=== PATIENT | male | born 1950 | race Two or more races ===

== ENCOUNTER 2016-11-20 14:26 | Inpatient (IN) | payer OTHER ==
[~2016-11-20] VITALS: Ht 165.1 cm; Wt 68.9 kg
--- NOTE | 2016-11-20 14:55 | Emergency Room Report ---
History of Present Illness General Chief Complaint: General Complaint Source: Patient, Medical Record, EMS Present Illness HPI 66 YO M with allegedly recently diagnosed pancreatic cancer sent from outpatient oncology facility for "more tests, possibly ERCP" as per EMS. Patient endorses 2-6/10 pain, some nausea. Denies vomiting, diarrhea, chest pain , SOB. States recent biopsy "didnt get enough info" and also had "2 stents in biliary tract" recently. States he was told he has obstruction at biliary tree at level of pancreas. Denies smoking, ETOH. Has ?BPH on finasteride. History of UTI recently? Allergies: Coded Allergies: No Known Allergies (Unverified , 11/20/16) Patient History Past Medical History: see triage record Past Surgical History: other - Stent placement in biliary tree Pertinent Family History: none Social History: Denies: alcohol use, drug use, smoking Immunizations: UTD Reviewed Nursing Documentation: PMH: Agreed, PSxH: Agreed Nursing Documentation-PMH Past Medical History: No History, Except For Hx Cancer: Yes - Pancreatic, obstructive Jaundice Review of Systems All Other Systems: negative except mentioned in HPI Physical Exam Vital Signs Date Time Temp Pulse Resp B/P Pulse Ox O2 Delivery O2 Flow Rate FiO2 11/20/16 14:22 98.4 68 16 121/67 94 Room Air Sp02 EP Interpretation: reviewed, normal General Appearance: normal inspection, well appearing, no apparent distress, alert, GCS 15, non-toxic Head: normocephalic, atraumatic Eyes: bilateral eye EOMI, bilateral eye PERRL ENT: normal ENT inspection, hearing grossly normal, normal voice Neck: normal inspection, full range of motion, supple, no bony tend Respiratory: normal inspection, lungs clear, normal breath sounds, no respiratory distress, no retraction, no wheezing Cardiovascular #1: regular rate, rhythm, no edema Gastrointestinal: normal inspection, normal bowel sounds, soft, no guarding, no hernia, distended, hepatomegaly, other - no rebound, guarding Genitourinary: no CVA tenderness Musculoskeletal: normal inspection, back normal, normal range of motion, Axel' s Sign negative Neurologic: normal inspection, alert, oriented x3, responsive, community product specialist III-XII nml as tested, motor strength/tone normal, speech normal Psychiatric: normal inspection, judgement/insight normal, mood/affect normal Skin: normal inspection, no rash, jaundice Medical Decision Making Medicare Attestation I Amaya Cornelius MD hereby attest that the medical record entry for date of service, 10/14/16 accurately reflects signatures/notations that I made in my capacity as MD when I treated/diagnosed the above listed Medicare beneficiary. I attest that this information is true, accurate and complete to the best of my knowledge. I understand that any falsification, omission, or concealment of material fact may subject me to administrative, civil, or criminal liability. This patient warrants hospital admission for extreme of age and has a condition that cannot be treated as outpatient. Diagnostic Impression: Primary Impression: Abdominal pain Qualified Codes: R10.84 - Generalized abdominal pain Additional Impressions: Pancreatic cancer Qualified Codes: C25.9 - Malignant neoplasm of pancreas, unspecified Jaundice Leukocytosis Qualified Codes: D72.829 - Elevated white blood cell count, unspecified ER Course 66 YO M with recent pancreatic cancer diagnosis, jaundice, abd pain, possible biliary tract obstruction, jaundice. VSS. Afebrile. PLAN Cardiac, O2 monitor, IV access, labs, LFTs, analgesia, Pre-op labs, Admit, GI consult Rhythm Strip Diag. Results EP Interpretation: yes Rate: 67 Rhythm: NSR, no PVC's, no ectopy Chest X-Ray Diagnostic Results EP Interpretation: Yes Findings: no consolidation, no effusion, no pneumothorax, no acute cardiopulmonary disease Number of Views: 1 Reevaluation Time: 16:28 Last Vital Signs Date Time Temp Pulse Resp B/P Pulse Ox O2 Delivery O2 Flow Rate FiO2 11/20/16 14:22 98.4 68 16 121/67 94 Room Air Status: improved Reevaluation Impression Labs: 18k lueks. H&H stable. CMP delayed. A: Empiric Zosyn given for potential biliary source of infection vs iatrogenic given recent biopsy/stent placement. CXR neg for PNA. Spoke to Dr Esparza who requested GI Cx with Dr York for ENDO US tomorrow, I confirmed with Dr York for this. Endorsed to Dr Dietrich as admitting hospitalist at 415pm for med surg bed Patient resting comfortably after anti-emetic and analgesia No other acute issues in ED Disposition: ADMITTED INPATIENT Condition: Serious AMAYA CORNELIUS M.D. Nov 20, 2016 14:55
[2016-11-20] MEDS ORDERED: HYDROmorphone 1 MG, DiphenhydrAMINE 25 MG in NS 50 ML IV ONE (15:00)
[2016-11-20] MEDS ORDERED: ATORVASTATIN CA20 MG ORAL (15:17)
[2016-11-20] MEDS ORDERED: TAMSULOSIN HCL0.4 MG ORAL (15:17)
[2016-11-20] MEDS ORDERED: PROSCAR5 MG ORAL (15:17)
[2016-11-20] MEDS ORDERED: HYDROmorphone 1mg/ml Carpuject ONE (15:34)
[2016-11-20] MEDS ORDERED: NS 55 ML IV ONE (15:34)
[2016-11-20] MEDS ORDERED: DiphenhydrAMINE 50mg/ml Inj ONE (15:34)
[2016-11-20 15:59] LABS: APPEARANCE,URINE CLEAR; KETONES,URINE NEGATIVE (NEGATIVE); LEUKOCYTE ESTERASE ,URINE NEGATIVE (NEGATIVE); NITRITE,URINE NEGATIVE (NEGATIVE); PH,URINE 7 (4.5-8.0); PROTEIN,URINE NEGATIVE (NEGATIVE); UROBILINOGEN,URINE 1 MG/DL (0.0-1.0)
[2016-11-20 16:05] VITALS: BP 121/63
[2016-11-20 16:11] VITALS: BP 112/57
[2016-11-20 16:14] LABS: MEAN CORPUSCULAR HEMOGLOBIN 31.2 PG (27.0-31.0); MEAN CORPUSCULAR HGB CONC 31.3 G/DL (32.0-36.0); MEAN CORPUSCULAR VOLUME 100 FL (80-99); MEAN PLATELET VOLUME 6.6 FL (6.5-10.1); PLATELET COUNT 247 K/UL (150-450); RED BLOOD COUNT 3.02 M/UL (4.70-6.10); RED CELL DISTRIBUTION WIDTH 15.3 % (11.6-14.8); WHITE BLOOD COUNT 18.5 K/UL (4.8-10.8)
[2016-11-20 16:22] LABS: PROTHROMBIN TIME 10.4 SEC (9.30-11.50)
[2016-11-20 16:26] LABS: CALCIUM 8.6 mg/dL (8.6-10.2); CREATININE 1.3 mg/dL (0.7-1.2); GLOMERULAR FILTRATION RATE 55.2 mL/min (>60); POTASSIUM 4.4 mEQ/L (3.4-4.9)
[2016-11-20 16:42] LABS: BILIRUBIN,DIRECT 2.1 mg/dL (0.1-0.3)
[2016-11-20] MEDS ORDERED: Zosyn 3.375gm inj ONE (16:42)
[2016-11-20] MEDS ORDERED: Nitroglycerin Subl 0.4mg tab (Bottle Of 25) SL PRN (16:45)
[2016-11-20] MEDS ORDERED: Mylanta II UD 30ml ORAL PRN (16:45)
[2016-11-20] MEDS ORDERED: Miralax 17gm pkt ORAL PRN (16:45)
[2016-11-20] MEDS ORDERED: Morphine Sulfate 2mg/ml Inj IVP PRN (16:45)
--- NOTE | 2016-11-20 16:46 | History and Physical ---
History of Present Illness General Date patient seen: Nov 20, 2016 Reason for Hospitalization: General Complaint Present Illness HPI 66 yo gentleman presents to emergency room with severe abdominal pain complaint. Patient also reports that he was recently diagnosed with pancreatic cancer and was recently sent from outpatient oncology facility for "more tests", possibly ERCP" as per EMS. Patient endorses 2-6/10 pain, some nausea. Denies vomiting, diarrhea, chest pain, SOB. Patient also states recent biopsy "didnt get enough info" and also had "2 stents in biliary tract" recently. Patient states that he was told he has obstruction at biliary tree at level of pancrease by the specialist taking care of him. Allergies: Coded Allergies: No Known Allergies (Unverified , 11/20/16) Medication History Scheduled Atorvastatin Calcium* (Atorvastatin Calcium*), 20 MG ORAL BEDTIME, (Reported) Finasteride* (Proscar*), 5 MG ORAL DAILY, (Reported) Tamsulosin Hcl (Tamsulosin Hcl*), 0.4 MG ORAL BEDTIME, (Reported) Patient History Healthcare decision maker Resuscitation status Advanced Directive on File Review of Systems Constitutional: Reports: fever, malaise, weakness Gastrointestinal: Reports: abdominal pain, nausea Physical Exam General Appearance: no apparent distress Lines, tubes and drains: peripheral HEENT: normocephalic, atraumatic, PERRL Neck: non-tender Respiratory/Chest: chest wall non-tender, crackles/rales, rhonchi - bilaterally Breasts: no masses Cardiovascular/Chest: normal peripheral pulses, normal rate, regular rhythm Abdomen: absent bowel sounds, distended, guarding, rebound, tender Genitourinary/Rectal: normal genital exam, normal rectal exam Extremities: normal range of motion, non-tender Skin Exam: normal pigmentation, warm/dry 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, no motor/sensory deficits Last 24 Hour Vital Signs Date Time Temp Pulse Resp B/P Pulse Ox O2 Delivery O2 Flow Rate FiO2 11/20/16 16:11 73 18 112/57 100 Room Air 11/20/16 16:05 69 16 121/63 100 Room Air 11/20/16 14:22 98.4 68 16 121/67 94 Room Air Laboratory Tests Test 11/20/16 15:20 White Blood Count 18.5 K/UL (4.8-10.8) H Red Blood Count 3.02 M/UL (4.70-6.10) L Hemoglobin 9.4 G/DL (14.2-18.0) L Hematocrit 30.1 % (42.0-52.0) L Mean Corpuscular Volume 100 FL (80-99) H Mean Corpuscular Hemoglobin 31.2 PG (27.0-31.0) H Mean Corpuscular Hemoglobin Concent 31.3 G/DL (32.0-36.0) L Red Cell Distribution Width 15.3 % (11.6-14.8) H Platelet Count 247 K/UL (150-450) Mean Platelet Volume 6.6 FL (6.5-10.1) Neutrophils (%) (Auto) % (45.0-75.0) Lymphocytes (%) (Auto) % (20.0-45.0) Monocytes (%) (Auto) % (1.0-10.0) Eosinophils (%) (Auto) % (0.0-3.0) Basophils (%) (Auto) % (0.0-2.0) Neutrophils % (Manual) Pending Lymphocytes % (Manual) Pending Platelet Estimate Pending Platelet Morphology Pending Prothrombin Time 10.4 SEC (9.30-11.50) Prothromb Time International Ratio 1.0 (0.9-1.1) Activated Partial Thromboplast Time 29 SEC (23-33) Urine Color Yellow Urine Appearance Clear Urine pH 7 (4.5-8.0) Urine Specific [place] 1.010 (1.005-1.035) Urine Protein Negative (NEGATIVE) Urine Glucose (UA) Negative (NEGATIVE) Urine Ketones Negative (NEGATIVE) Urine Occult Blood Negative (NEGATIVE) Urine Nitrite Negative (NEGATIVE) Urine Bilirubin Negative (NEGATIVE) Urine Urobilinogen 1 MG/DL (0.0-1.0) H Urine Leukocyte Esterase Negative (NEGATIVE) Sodium Level 140 mEQ/L (135-145) Potassium Level 4.4 mEQ/L (3.4-4.9) Chloride Level 99 mEQ/L (98-107) Carbon Dioxide Level 29 mEQ/L (20-30) Anion Gap 12 (5-15) Blood Urea Nitrogen 26 mg/dL (7-23) H Creatinine 1.3 mg/dL (0.7-1.2) H Estimat Glomerular Filtration Rate 55.2 mL/min (>60) Glucose Level 102 mg/dL (74-106) Calcium Level 8.6 mg/dL (8.6-10.2) Total Bilirubin 4.2 mg/dL (0.0-1.2) H Direct Bilirubin 2.1 mg/dL (0.1-0.3) H Aspartate Amino Transf (AST/SGOT) 76 U/L (5-40) H Alanine Aminotransferase (ALT/SGPT) 66 U/L (3-41) H Alkaline Phosphatase 345 U/L (40-129) H Total Protein 6.0 g/dL (6.6-8.7) L Albumin 3.0 g/dL (3.5-5.2) L Globulin 3.0 g/dL Albumin/Globulin Ratio 1.0 (1.0-2.7) Lipase 119 U/L (< 60) H Height (Feet): 5 Height (Inches): 8.00 Weight (Pounds): 150 Medications Current Medications Medications (Trade) Dose Ordered Sig/Courtney Route PRN Reason Start Time Stop Time Status Last Admin Dose Admin Acetaminophen (Tylenol) 650 mg Q4H PRN ORAL fever 11/20/16 16:45 12/20/16 16:44 UNV Al Hydroxide/Mg Hydroxide (Mylanta II) 30 ml Q6H PRN ORAL dyspepsia 11/20/16 16:45 12/20/16 16:44 UNV Atorvastatin Calcium (Lipitor) 20 mg BEDTIME ORAL 11/20/16 21:00 12/20/16 20:59 UNV Dextrose STAT PRN IV Hypoglycemia 11/20/16 16:45 12/20/16 16:44 UNV Dextrose/Sodium Chloride (D5 0.45% NS) 1,000 ml @ 75 mls/hr [id number] IV 11/20/16 17:40 12/20/16 17:39 UNV Diphenhydramine HCl (Benadryl) 25 mg Q6H PRN ORAL Itching/Pruritis 11/20/16 16:45 12/20/16 16:44 UNV Finasteride (Proscar) 5 mg DAILY ORAL 11/21/16 09:00 12/21/16 08:59 UNV Heparin Sodium (Porcine) (Heparin 5000 units/ml) 5,000 units EVERY 12 HOURS SUBQ 11/20/16 21:00 12/20/16 20:59 UNV Morphine Sulfate (Morphine Sulfate) 2 mg EVERY 4 HOURS PRN IVP severe Pain (Pain Scale 7-10) 11/20/16 16:45 11/27/16 16:44 UNV Nitroglycerin (Ntg) 0.4 mg Q5M X 3 DOSES PRN SL Prn Chest Pain 11/20/16 16:45 12/20/16 16:44 UNV Ondansetron HCl (Zofran) 4 mg Q6H PRN IVP Nausea & Vomiting 11/20/16 16:45 12/20/16 16:44 UNV Piperacillin Sod/ Tazobactam Sod/ Sodium Chloride (Zosyn/Sodium Chloride 100ml bag) 100 ml @ 200 mls/hr EVERY 6 HOURS IVPB 11/20/16 18:00 11/27/16 17:59 UNV Piperacillin Sod/ Tazobactam Sod/ Sodium Chloride (Zosyn/Sodium Chloride 100ml bag) 100 ml @ 200 mls/hr ONCE ONCE IVPB 11/20/16 16:30 11/20/16 16:59 11/20/16 16:45 Polyethylene Glycol (Miralax) 17 gm HSPRN PRN ORAL Constipation 11/20/16 16:45 12/20/16 16:44 UNV Tamsulosin HCl 0.4 mg 0.4 mg BEDTIME ORAL 11/20/16 21:00 12/20/16 20:59 UNV Temazepam (Restoril) 15 mg HSPRN PRN ORAL Insomnia 11/20/16 16:45 11/27/16 16:44 UNV Assessment/Plan Status: stable, progressing Assessment/Plan Assessment/Plan Problems: (1) Sepsis (2) Jaundice (3) Hypoalbuminemia (4) Pancreatic cancer (5) Abdominal pain (6) Biliary obstruction (7) Dyspnea (8) Anemia Assessment/Plan Urology evaluation cxr showing LLL atelectasis/ infiltrate continue antibiotics check cultures sputum c/s respiratory treatment MILES KNUTSON Nov 20, 2016 16:46
[2016-11-20 18:29] LABS: BAND NEUTROPHILS % (MANUAL) 5 % (0-8); BASOPHILS % (MANUAL) 1 % (0-2); EOSINOPHILS % (MANUAL) 6 % (0-3); LYMPHOCYTES % (MANUAL) 7 % (20-45); NEUTROPHILS % (MANUAL) 76 % (45-75); TOTAL CELLS COUNTED 100
[2016-11-20 18:30] LABS: ANISOCYTOSIS 1+; HYPOCHROMASIA 1+; POLYCHROMASIA 1+
[2016-11-20 18:31] LABS: PLATELET ESTIMATE ADEQUATE; PLATELET MORPHOLOGY NORMAL
[2016-11-20 20:00] VITALS: BP 124/67
[2016-11-20] MEDS: Tamsulosin 0.4mg cap ORAL SCH (22:04)
[2016-11-20] MEDS: D5 1/2NS 1,000 ML IV SCH (22:05)
[2016-11-20] MEDS: Heparin 5000 units/ml inj SUBQ SCH (22:07)
[2016-11-21] VITALS: BP 120/79
[2016-11-21 04:00] VITALS: BP 101/54
[2016-11-21] MEDS: D5 1/2NS 1,000 ML IV SCH ×3 (07:00→21:12)
[2016-11-21 08:25] LABS: MEAN CORPUSCULAR HEMOGLOBIN 32.2 PG (27.0-31.0); MEAN CORPUSCULAR HGB CONC 32.9 G/DL (32.0-36.0); MEAN CORPUSCULAR VOLUME 98 FL (80-99); MEAN PLATELET VOLUME 6.8 FL (6.5-10.1); PLATELET COUNT 248 K/UL (150-450); RED BLOOD COUNT 2.83 M/UL (4.70-6.10); WHITE BLOOD COUNT 19.4 K/UL (4.8-10.8)
[2016-11-21 08:47] LABS: BILIRUBIN,DIRECT 1.9 mg/dL (0.1-0.3); TOTAL PROTEIN 5.3 g/dL (6.6-8.7)
[2016-11-21 08:52] LABS: ALBUMIN/GLOBULIN RATIO 1.2 (1.0-2.7); CALCIUM 7.9 mg/dL (8.6-10.2); CREATININE 1.4 mg/dL (0.7-1.2); GLOMERULAR FILTRATION RATE 50.7 mL/min (>60); POTASSIUM 3.9 mEQ/L (3.4-4.9); TOTAL PROTEIN 4.8 g/dL (6.6-8.7)
[2016-11-21] MEDS: Heparin 5000 units/ml inj SUBQ SCH ×2 (10:39→21:00)
[2016-11-21 10:43] LABS: ANISOCYTOSIS 1+; BAND NEUTROPHILS % (MANUAL) 0 % (0-8); BASOPHILS % (MANUAL) 0 % (0-2); EOSINOPHILS % (MANUAL) 1 % (0-3); LYMPHOCYTES % (MANUAL) 2 % (20-45); NEUTROPHILS % (MANUAL) 97 % (45-75); PLATELET ESTIMATE ADEQUATE; PLATELET MORPHOLOGY NORMAL; TOTAL CELLS COUNTED 100
[2016-11-21 10:44] LABS: MACROCYTES 1+
[2016-11-21 10:45] LABS: HYPOCHROMASIA 1+
[2016-11-21 12:00] VITALS: BP 93/60
[2016-11-21 16:00] VITALS: BP 94/59
--- NOTE | 2016-11-21 17:00 | GI Initial Consult Note ---
History of Present Illness General Date patient seen: Nov 21, 2016 Time patient seen: 10:00 Reason for Hospitalization: General Complaint Referring physician: ROBIN BURLESON Reason for Consultation: ABDOMINAL PAIN Present Illness HPI 66 YO M with allegedly recently diagnosed pancreatic cancer sent from outpatient oncology facility for "more tests, possibly ERCP" as per EMS. Patient endorses 2-6/10 pain, some nausea. Denies vomiting, diarrhea, chest pain , SOB. States recent biopsy "didnt get enough info" and also had "2 stents in biliary tract" recently. States he was told he has obstruction at biliary tree at level of pancreas. Denies smoking, ETOH. Has ?BPH on finasteride. History of UTI recently? GI NOTE: Initial HPI as noted above. GI consulted to evaluate biliary obstruction. Pt seen on floor, awake A&Ox4 with only c/o of hunger at this time. The patient was currently NPO, scheduled for multiple imaging studies on the biliary tree. Pt has hx of pancreatic CA with CA19-9 of 120.9 on admission. Also presents with leukocytosis, anemia, abnormal LFTs and hypoalbuminemia. Home Meds Reported Medications Tamsulosin Hcl (TAMSULOSIN HCL*) 0.4 Mg Cap.er.24h, 0.4 MG ORAL BEDTIME, CAP 11/20/16 Finasteride* (PROSCAR*) 5 Mg Tablet, 5 MG ORAL DAILY, #30 TAB 0 Refills 11/20/16 Atorvastatin Calcium* (ATORVASTATIN CALCIUM*) 20 Mg Tablet, 20 MG ORAL BEDTIME, TAB 11/20/16 Med list reviewed/reconciled: Yes Allergies: Coded Allergies: No Known Allergies (Unverified , 11/20/16) Patient History History Provided By: Patient PMH Narrative Past Medical History: see triage record Past Surgical History: other - Stent placement in biliary tree Pertinent Family History: none Social History: Denies: alcohol use, drug use, smoking Immunizations: UTD Reviewed Nursing Documentation: PMH: Agreed, PSxH: Agreed Nursing Documentation-PM Past Medical History: No History, Except For Hx Cancer: Yes - Pancreatic, obstructive Jaundice Review of Systems All Other Systems: negative except mentioned in HPI Physical Exam Vital Signs Date Time Temp Pulse Resp B/P Pulse Ox O2 Delivery O2 Flow Rate FiO2 11/20/16 14:22 98.4 68 16 121/67 94 Room Air 11/21/16 00:00 2.0 Sp02 EP Interpretation: reviewed Labs Laboratory Tests Test 11/21/16 07:10 White Blood Count 19.4 K/UL (4.8-10.8) H Red Blood Count 2.83 M/UL (4.70-6.10) L Hemoglobin 9.1 G/DL (14.2-18.0) L Hematocrit 27.6 % (42.0-52.0) L Mean Corpuscular Volume 98 FL (80-99) Mean Corpuscular Hemoglobin 32.2 PG (27.0-31.0) H Mean Corpuscular Hemoglobin Concent 32.9 G/DL (32.0-36.0) Red Cell Distribution Width 15.0 % (11.6-14.8) H Platelet Count 248 K/UL (150-450) Mean Platelet Volume 6.8 FL (6.5-10.1) Neutrophils (%) (Auto) % (45.0-75.0) Lymphocytes (%) (Auto) % (20.0-45.0) Monocytes (%) (Auto) % (1.0-10.0) Eosinophils (%) (Auto) % (0.0-3.0) Basophils (%) (Auto) % (0.0-2.0) Differential Total Cells Counted 100 Neutrophils % (Manual) 97 % (45-75) H Lymphocytes % (Manual) 2 % (20-45) L Monocytes % (Manual) 0 % (1-10) L Eosinophils % (Manual) 1 % (0-3) Basophils % (Manual) 0 % (0-2) Band Neutrophils 0 % (0-8) Platelet Estimate Adequate Platelet Morphology Normal Hypochromasia 1+ Anisocytosis 1+ Macrocytosis 1+ Activated Partial Thromboplast Time 29 SEC (23-33) Sodium Level 144 mEQ/L (135-145) Potassium Level 3.9 mEQ/L (3.4-4.9) Chloride Level 102 mEQ/L (98-107) Carbon Dioxide Level 27 mEQ/L (20-30) Anion Gap 15 (5-15) Blood Urea Nitrogen 24 mg/dL (7-23) H Creatinine 1.4 mg/dL (0.7-1.2) H Estimat Glomerular Filtration Rate 50.7 mL/min (>60) Glucose Level 92 mg/dL (74-106) Calcium Level 7.9 mg/dL (8.6-10.2) L Total Bilirubin 3.8 mg/dL (0.0-1.2) H Direct Bilirubin 1.9 mg/dL (0.1-0.3) H Aspartate Amino Transf (AST/SGOT) 73 U/L (5-40) H Alanine Aminotransferase (ALT/SGPT) 58 U/L (3-41) H Alkaline Phosphatase 282 U/L (40-129) H Total Protein 5.3 g/dL (6.6-8.7) L Albumin 2.6 g/dL (3.5-5.2) L Globulin 2.1 g/dL Albumin/Globulin Ratio 1.2 (1.0-2.7) Amylase Level 80 U/L (10-110) Lipase 106 U/L (< 60) H CA 19-9 Antigen 120.9 U/mL (< 37) H General Appearance: no apparent distress, alert, thin Head: normocephalic EENT: normal ENT inspection Neck: supple Respiratory: normal breath sounds, no respiratory distress Cardiovascular: normal rate Gastrointestinal: normal inspection, non tender, soft Rectal: deferred Genitourinary: no CVA tenderness Musculoskeletal: back normal Neurologic: normal inspection, alert, oriented x3, responsive Psychiatric: normal inspection, judgement/insight normal, memory normal Skin: normal inspection, normal color, no rash, warm/dry Lymphatic: normal inspection, no adenopathy Current Medications Current Medications Medications (Trade) Dose Ordered Sig/Courtney Route PRN Reason Start Time Stop Time Status Last Admin Dose Admin Acetaminophen (Tylenol) 650 mg Q4H PRN ORAL fever 11/20/16 16:45 12/20/16 16:44 Al Hydroxide/Mg Hydroxide (Mylanta II) 30 ml Q6H PRN ORAL dyspepsia 11/20/16 16:45 12/20/16 16:44 Atorvastatin Calcium (Lipitor) 20 mg BEDTIME ORAL 11/20/16 21:00 12/20/16 20:59 11/20/16 22:04 Dextrose STAT PRN IV Hypoglycemia 11/20/16 16:45 12/20/16 16:44 Dextrose/Sodium Chloride (D5 0.45% NS) 1,000 ml @ 75 mls/hr [id number] IV 11/20/16 17:40 2/10/17 17:39 11/21/16 12:22 Diphenhydramine HCl (Benadryl) 25 mg Q6H PRN ORAL Itching/Pruritis 11/20/16 16:45 12/20/16 16:44 Finasteride (Proscar) 5 mg DAILY ORAL 11/21/16 09:00 12/21/16 08:59 11/21/16 10:33 Heparin Sodium (Porcine) (Heparin 5000 units/ml) 5,000 units EVERY 12 HOURS SUBQ 11/20/16 21:00 12/20/16 20:59 11/21/16 10:39 Morphine Sulfate (Morphine Sulfate) 2 mg EVERY 4 HOURS PRN IVP severe Pain (Pain Scale 7-10) 11/20/16 16:45 11/27/16 16:44 11/21/16 03:34 Nitroglycerin (Ntg) 0.4 mg Q5M X 3 DOSES PRN SL Prn Chest Pain 11/20/16 16:45 12/20/16 16:44 Ondansetron HCl (Zofran) 4 mg Q6H PRN IVP Nausea & Vomiting 11/20/16 16:45 12/20/16 16:44 Piperacillin Sod/ Tazobactam Sod/ Sodium Chloride (Zosyn/Sodium Chloride 100ml bag) 100 ml @ 25 mls/hr Q8HR IVPB 11/20/16 22:00 11/27/16 21:59 11/21/16 13:52 Polyethylene Glycol (Miralax) 17 gm HSPRN PRN ORAL Constipation 11/20/16 16:45 12/20/16 16:44 Tamsulosin HCl 0.4 mg 0.4 mg BEDTIME ORAL 11/20/16 21:00 12/20/16 20:59 11/20/16 22:04 Temazepam (Restoril) 15 mg HSPRN PRN ORAL Insomnia 11/20/16 16:45 11/27/16 16:44 GI: Plan Problems: (1) Anemia (2) Biliary obstruction (3) Hypoalbuminemia (4) Malnutrition (5) Abdominal pain (6) Pancreatic cancer (7) Jaundice (8) Leukocytosis Plan pt scheduled for EUS/FNA tomorrow. - CLD now, NPO @ [place]. monitor H&H, transfuse prn fu abdominal imaging studies ppi fu labs Discussed with Dr. York. Thank you for referring this patient, we will follow. Oxana Michaels N.P. Nov 21, 2016 17:00
--- NOTE | 2016-11-21 17:27 | Diagnostic Imaging Report ---
Indications: Pelvic pain, history of pancreatic neoplasm Technique: Sagittal and axial T2-weighted fast spin-echo, coronal and axial T2-weighted fat-saturated fast spin-echo, axial T1-weighted fast spin-echo, Lara saturated lava and fat saturated lava sequences of the pelvis performed without IV gadolinium administration. Findings: Comparison: None Motion artifact degrades all images. Moderate ascites fills the pelvic peritoneal cavity. 2.5 cm multilobulated soft tissue mass is based against the posterior peritoneal surface of the pelvic cul-de-sac. There is suggestion of additional soft tissue nodules adjacent to the anterior pelvic peritoneal surface and surface of the sigmoid colon. Multiple diverticula are noted in the proximal aspect of the sigmoid colon. Garcia catheter is present in the urinary bladder. Prostate gland is prominent and heterogeneous. No enlarged retroperitoneal, mesenteric, pelvic, or inguinal lymph nodes detected. Small left inguinal hernia contains only fat. Disc space narrowing with marginal osteophyte formation in lower lumbar spine. IMPRESSION: Moderate ascites Suggestion of multiple peritoneal masses raising the suspicion of peritoneal carcinomatosis. CT scan of the abdomen and pelvis with full oral and IV contrast preparation recommended for more detailed evaluation. Garcia catheter Enlarged heterogeneous prostate Degenerative spondylosis Colonic diverticulosis Small fat-containing left inguinal hernia
[2016-11-21 20:00] VITALS: BP 100/62
--- NOTE | 2016-11-21 20:17 | Cardiology Report ---
APPROVED REPORT EKG Measurement Heart [id number] Normal sinus rhythm Possible Left atrial enlargement Borderline ECG
[2016-11-21] MEDS: Tamsulosin 0.4mg cap ORAL SCH (21:12)
[2016-11-22] VITALS (13 sets, daily range): BP systolic 81–114; BP diastolic 45–68
[2016-11-22] MEDS: Pantoprazole Inj IVP SCH (09:00)
[2016-11-22] MEDS: Heparin 5000 units/ml inj SUBQ SCH ×2 (09:00→21:11)
--- NOTE | 2016-11-22 09:21 | Pre-Procedure Note/Attestation ---
Pre-Procedure Note/Attestation Complete Prior to Procedure Planned Procedure: not applicable Procedure Narrative: eus/fna Indications for Procedure Pre-Operative Diagnosis: pancreatic mass Attestation I attest that I discussed the nature of the procedure; its benefits; risks and complications; and alternatives (and the risks and benefits of such alternatives ), prior to the procedure, with the patient (or the patient's legal appeals representative). I attest that, if there was a reasonable possibility of needing a blood transfusion, the patient (or the patient's legal appeals representative) was given the [facility] standardized written summary, pursuant to the Rivera Stefania Blood Safety Act ([place] Health and Safety Code # 1645, as amended). I attest that I re-evaluated the patient just prior to the surgery and that there has been no change in the patient's H&P, except as documented below: ALIREZA HERRERA Nov 22, 2016 09:21
[2016-11-22 09:22] LABS: BASOPHILS % (AUTO) 2.2 % (0.0-2.0); EOSINOPHILS % (AUTO) 8.5 % (0.0-3.0); LYMPHOCYTES % (AUTO) 5.7 % (20.0-45.0); MEAN CORPUSCULAR HEMOGLOBIN 31.9 PG (27.0-31.0); MEAN CORPUSCULAR HGB CONC 32.9 G/DL (32.0-36.0); MEAN CORPUSCULAR VOLUME 97 FL (80-99); MEAN PLATELET VOLUME 6.6 FL (6.5-10.1); MONOCYTES % (AUTO) 3.7 % (1.0-10.0); NEUTROPHILS % (AUTO) 79.9 % (45.0-75.0); PLATELET COUNT 246 K/UL (150-450); RED BLOOD COUNT 2.88 M/UL (4.70-6.10); RED CELL DISTRIBUTION WIDTH 14.9 % (11.6-14.8); WHITE BLOOD COUNT 12.7 K/UL (4.8-10.8)
[2016-11-22] MEDS ORDERED: Propofol 10mg/ml 20ml IV ONE (09:30)
[2016-11-22] MEDS ORDERED: Heplock Flush 100 units/ml 3 ml syr ONE (09:36)
[2016-11-22] MEDS: D5 1/2NS 1,000 ML IV SCH ×3 (09:40→21:17)
[2016-11-22] MEDS ORDERED: NS 550ML IV ONE ×2 (09:45→10:45)
[2016-11-22 09:46] LABS: ALBUMIN/GLOBULIN RATIO 0.8 (1.0-2.7); CREATININE 1.3 mg/dL (0.7-1.2); GLOMERULAR FILTRATION RATE 55.2 mL/min (>60); POTASSIUM 3.2 mEQ/L (3.4-4.9); TOTAL PROTEIN 5.6 g/dL (6.6-8.7)
[2016-11-22 09:47] LABS: INR 1.1 (0.9-1.1); PROTHROMBIN TIME 10.9 SEC (9.30-11.50)
--- NOTE | 2016-11-22 10:02 | Anethesia Preoperative Eval ---
Anesthesia Pre-op PMH/ROS General Date of Evaluation: Nov 22, 2016 Time of Evaluation: 09:36 Anesthesiologist: nish ASA Score: ASA 3 Mallampati Score Class I : Soft palate, uvula, fauces, pillars visible Class II: Soft palate, uvula, fauces visible Class III: Soft palate, base of uvula visible Class IV: Only hard plate visible Mallampati Classification: Class II Surgeon: karen Diagnosis: pancreatic mass Surgical Procedure: EUS/FNA Anesthesia History: none Allergies: Coded Allergies: No Known Allergies (Unverified , 11/20/16) Past Medical History Cardiovascular: Reports: HTN Gastrointestinal/Genitourinary: Reports: other - acute renal failure, dialysis Anesthesia Pre-op Phys. Exam Physician Exam Last Vital Signs Date Time Temp Pulse Resp B/P Pulse Ox O2 Delivery O2 Flow Rate FiO2 11/22/16 04:00 97.7 67 18 114/68 99 Room Air 11/21/16 04:00 2.0 Airway Exam Mallampati Score: Class II Teeth: intact Anesthesia Pre-op A/P Labs Hematology Test 11/22/16 08:20 White Blood Count 12.7 K/UL (4.8-10.8) H Red Blood Count 2.88 M/UL (4.70-6.10) L Hemoglobin 9.2 G/DL (14.2-18.0) L Hematocrit 28.0 % (42.0-52.0) L Mean Corpuscular Volume 97 FL (80-99) Mean Corpuscular Hemoglobin 31.9 PG (27.0-31.0) H Mean Corpuscular Hemoglobin Concent 32.9 G/DL (32.0-36.0) Red Cell Distribution Width 14.9 % (11.6-14.8) H Platelet Count 246 K/UL (150-450) Mean Platelet Volume 6.6 FL (6.5-10.1) Neutrophils (%) (Auto) 79.9 % (45.0-75.0) H Lymphocytes (%) (Auto) 5.7 % (20.0-45.0) L Monocytes (%) (Auto) 3.7 % (1.0-10.0) Eosinophils (%) (Auto) 8.5 % (0.0-3.0) H Basophils (%) (Auto) 2.2 % (0.0-2.0) H Coagulation Test 11/22/16 08:20 Prothrombin Time 10.9 SEC (9.30-11.50) Prothromb Time International Ratio 1.1 (0.9-1.1) Activated Partial Thromboplast Time 30 SEC (23-33) Chemistry Test 11/22/16 08:20 Sodium Level 141 mEQ/L (135-145) Potassium Level 3.2 mEQ/L (3.4-4.9) L Chloride Level 100 mEQ/L (98-107) Carbon Dioxide Level 25 mEQ/L (20-30) Anion Gap 16 (5-15) H Blood Urea Nitrogen 22 mg/dL (7-23) Creatinine 1.3 mg/dL (0.7-1.2) H Estimat Glomerular Filtration Rate 55.2 mL/min (>60) Glucose Level 103 mg/dL (74-106) Calcium Level 8.0 mg/dL (8.6-10.2) L Total Bilirubin 3.8 mg/dL (0.0-1.2) H Direct Bilirubin Pending Aspartate Amino Transf (AST/SGOT) 79 U/L (5-40) H Alanine Aminotransferase (ALT/SGPT) 66 U/L (3-41) H Alkaline Phosphatase 269 U/L (40-129) H Total Protein 5.6 g/dL (6.6-8.7) L Albumin 2.6 g/dL (3.5-5.2) L Globulin 3.0 g/dL Albumin/Globulin Ratio 0.8 (1.0-2.7) L Risk Assessment & Plan Plan: propofol Status Change Before Surgery: Geovanni Rojas MD Nov 22, 2016 10:02
--- NOTE | 2016-11-22 10:03 | Immediate Post-Op Evaluation ---
Immediate Post-Op Evalulation Immediate Post-Op Evalulation Date of Evaluation: Nov 22, 2016 Time of Evaluation: 11:15 IV Fluids: 600 Blood Pressure Systolic: 89 Blood Pressure Diastolic: 57 Pulse Rate: 64 Respiratory Rate: 22 O2 Sat by Pulse Oximetry: 100 Temperature (Fahrenheit): 97 Pain Score (1-10): 0 Nausea: No Vomiting: No Complications none Patient Status: awake, patent, none Hydration Status: adequate Geovanni Null MD Nov 22, 2016 10:03
--- NOTE | 2016-11-22 10:04 | 48 Hour Post Anesthesia Eval ---
Post Anesthesia Evaluation Date of Evaluation: Nov 22, 2016 Time of Evaluation: 11:40 Blood Pressure Systolic: 105 0: 67 Pulse Rate: 59 Respiratory Rate: 21 Temperature (Fahrenheit): 98.5 O2 Sat by Pulse Oximetry: 100 Airway: patent Nausea: No Vomiting: No Pain Intensity: 0 Hydration Status: adequate Cardiopulmonary Status: stable Mental Status/LOC: patient returned to baseline Follow-up Care/Observations: n/a Post-Anesthesia Complications: tolerated well Follow-up care needed: N/A Geovanni Null MD Nov 22, 2016 10:04
[2016-11-22] MEDS ORDERED: NS 110ml ONE (12:59)
--- NOTE | 2016-11-22 16:20 | Wound Care Consultation ---
Wound Assessment Wound Assessment #1: Wound Present on Admission: Yes New Wound: No Status Change of Wound: No Wound Location Body Site: perineal area Wound Type: chemical burn Mila Test: Does not Mila Wound Drainage Amount: None Wound Drainage Odor: None/Absent Tissue Surrounding Wound: Erythemic Wound General Appearance: Reddened Wound Assessment #2: Wound Number: #2 Wound Present on Admission: Yes New Wound: No Status Change of Wound: No Wound Location Body Site Modif: left, dorsal Wound Location Body Site: foot Wound Type: blister - open blisters Mila Test: Does not Mila Wound Thickness: Partial Thickness Wound Drainage Description: Serosanguineous Wound Drainage Amount: Moderate Wound Drainage Odor: None/Absent Tissue Surrounding Wound: Erythemic Wound General Appearance: Reddened Wound Comment #1 Chemical burn to perineal area and sacral area #2 Left dorsal foot with scattered open blisters Recommendation -Keep clean and dry -Turn and reposition -Optimize nutrition -Cleanse area with saline, pat dry, apply skin barrier cream to Perineal and sacral area BID and PAM -Cleanse left dorsal foot open blister area with saline, pat dry, apply adaptic , cover with 4x4, secure with paper tape daily and PRN soiled or dislodged -Offload both heels -Elevate both legs -Assess and f/u accordingly for any changes HELENE DONALDSON RN Nov 22, 2016 16:20
--- NOTE | 2016-11-22 17:23 | Pulmonology Progress Note ---
Assessment/Plan Problems: (1) Sepsis (2) Jaundice (3) Hypoalbuminemia (4) Pancreatic cancer (5) Abdominal pain (6) Biliary obstruction (7) Dyspnea (8) Anemia Assessment/Plan continue antibiotics check cultures awaiting ERCP and biopsy Subjective ROS Limited/Unobtainable: No Interval Events: late entery for 11/21/16, pt awaiting biopsy, Constitutional: Reports: no symptoms HEENT: Repors: no symptoms Respiratory: Reports: no symptoms Allergies: Coded Allergies: No Known Allergies (Unverified , 11/20/16) Objective Last 24 Hour Vital Signs Date Time Temp Pulse Resp B/P Pulse Ox O2 Delivery O2 Flow Rate FiO2 11/22/16 16:00 97.4 65 15 105/64 100 Nasal Cannula 2.0 11/22/16 14:00 97.0 73 18 97/67 100 Nasal Cannula 3.0 11/22/16 13:00 97.5 72 19 91/61 100 Nasal Cannula 3.0 11/22/16 11:57 59 21 100 11/22/16 11:35 98.5 59 21 105/67 100 Nasal Cannula 3.0 11/22/16 11:30 58 21 100/65 100 Nasal Cannula 3.0 11/22/16 11:25 58 21 96/62 100 Nasal Cannula 3.0 11/22/16 11:20 61 26 89/59 100 Simple Mask 6.0 11/22/16 11:13 62 25 88/60 100 Simple Mask 6.0 11/22/16 11:13 64 22 100 11/22/16 11:08 97.3 64 21 81/45 100 Simple Mask 6.0 11/22/16 08:00 97.3 63 18 99/59 99 Room Air 11/22/16 04:00 97.7 67 18 114/68 99 Room Air 11/22/16 00:00 97.5 63 18 105/62 100 Room Air 11/21/16 20:00 98.1 72 14 100/62 100 Room Air Intake and Output 11/21/16 11/22/16 19:00 07:00 Intake Total 975.0 ml 612 ml Output Total 550 ml 400 ml Balance 425.0 ml 212 ml Intake Oral 500 ml IV Total 475.0 ml 612 ml Output Urine Total 550 ml 400 ml # Bowel Movements 1 General Appearance: WD/WN HEENT: normocephalic Respiratory/Chest: chest wall non-tender, lungs clear Cardiovascular: normal peripheral pulses Abdomen: normal bowel sounds, no organomegaly Skin: no lesions, ulcers Laboratory Tests 11/22/16 08:20: White Blood Count 12.7H, Red Blood Count 2.88L, Hemoglobin 9.2L, Hematocrit 28.0L, Mean Corpuscular Volume 97, Mean Corpuscular Hemoglobin 31.9H, Mean Corpuscular Hemoglobin Concent 32.9, Red Cell Distribution Width 14.9H, Platelet Count 246, Mean Platelet Volume 6.6, Neutrophils (%) (Auto) 79.9H, Lymphocytes (%) (Auto) 5.7L, Monocytes (%) (Auto) 3.7, Eosinophils (%) (Auto) 8.5H, Basophils (%) (Auto) 2.2H, Prothrombin Time 10.9, Prothromb Time International Ratio 1.1, Activated Partial Thromboplast Time 30, Sodium Level 141, Potassium Level 3.2L, Chloride Level 100, Carbon Dioxide Level 25, Anion Gap 16H, Blood Urea Nitrogen 22, Creatinine 1.3H, Estimat Glomerular Filtration Rate 55.2, Glucose Level 103, Calcium Level 8.0L, Total Bilirubin 3.8H, Direct Bilirubin 2.0H, Aspartate Amino Transf (AST/SGOT) 79H, Alanine Aminotransferase (ALT/SGPT) 66H, Alkaline Phosphatase 269H, Total Protein 5.6L, Albumin 2.6L, Globulin 3.0, Albumin/Globulin Ratio 0.8L Current Medications Medications (Trade) Dose Ordered Sig/Courtney Route PRN Reason Start Time Stop Time Status Last Admin Dose Admin Acetaminophen (Tylenol) 650 mg Q4H PRN ORAL fever 11/20/16 16:45 12/20/16 16:44 Al Hydroxide/Mg Hydroxide (Mylanta II) 30 ml Q6H PRN ORAL dyspepsia 11/20/16 16:45 12/20/16 16:44 Atorvastatin Calcium (Lipitor) 20 mg BEDTIME ORAL 11/20/16 21:00 12/20/16 20:59 11/21/16 21:12 Dextrose STAT PRN IV Hypoglycemia 11/20/16 16:45 12/20/16 16:44 Dextrose/Sodium Chloride (D5 0.45% NS) 1,000 ml @ 75 mls/hr [id number] IV 11/20/16 17:40 12/20/16 17:39 11/22/16 13:14 Diphenhydramine HCl (Benadryl) 25 mg Q6H PRN ORAL Itching/Pruritis 11/20/16 16:45 12/20/16 16:44 Finasteride (Proscar) 5 mg DAILY ORAL 11/21/16 09:00 12/21/16 08:59 11/21/16 10:33 Heparin Sodium (Porcine) (Heparin 5000 units/ml) 5,000 units EVERY 12 HOURS SUBQ 11/20/16 21:00 12/20/16 20:59 11/21/16 10:39 Morphine Sulfate (Morphine Sulfate) 2 mg EVERY 4 HOURS PRN IVP severe Pain (Pain Scale 7-10) 11/20/16 16:45 11/27/16 16:44 11/21/16 03:34 Nitroglycerin (Ntg) 0.4 mg Q5M X 3 DOSES PRN SL Prn Chest Pain 11/20/16 16:45 12/20/16 16:44 Ondansetron HCl (Zofran) 4 mg Q6H PRN IVP Nausea & Vomiting 11/20/16 16:45 12/20/16 16:44 Pantoprazole (Protonix) 40 mg DAILY IVP 11/22/16 09:00 12/22/16 08:59 Piperacillin Sod/ Tazobactam Sod/ Sodium Chloride (Zosyn/Sodium Chloride 100ml bag) 100 ml @ 25 mls/hr Q8HR IVPB 11/20/16 22:00 11/27/16 21:59 11/22/16 14:54 Polyethylene Glycol (Miralax) 17 gm HSPRN PRN ORAL Constipation 11/20/16 16:45 12/20/16 16:44 Tamsulosin HCl 0.4 mg 0.4 mg BEDTIME ORAL 11/20/16 21:00 12/20/16 20:59 11/21/16 21:12 Temazepam (Restoril) 15 mg HSPRN PRN ORAL Insomnia 11/20/16 16:45 11/27/16 16:44 MILES KNUTSON Nov 22, 2016 17:23
--- NOTE | 2016-11-22 17:25 | Pulmonology Progress Note ---
Assessment/Plan Problems: (1) Sepsis (2) Jaundice (3) Hypoalbuminemia (4) Pancreatic cancer (5) Abdominal pain (6) Biliary obstruction (7) Dyspnea (8) Anemia Assessment/Plan social service pt/ot dc planning cxr continue antibiotics check cultures awaiting biopsy results Subjective ROS Limited/Unobtainable: No Interval Events: feeling week, doesnt want to be discharged Allergies: Coded Allergies: No Known Allergies (Unverified , 11/20/16) Objective Last 24 Hour Vital Signs Date Time Temp Pulse Resp B/P Pulse Ox O2 Delivery O2 Flow Rate FiO2 11/22/16 16:00 97.4 65 15 105/64 100 Nasal Cannula 2.0 11/22/16 14:00 97.0 73 18 97/67 100 Nasal Cannula 3.0 11/22/16 13:00 97.5 72 19 91/61 100 Nasal Cannula 3.0 11/22/16 11:57 59 21 100 11/22/16 11:35 98.5 59 21 105/67 100 Nasal Cannula 3.0 11/22/16 11:30 58 21 100/65 100 Nasal Cannula 3.0 11/22/16 11:25 58 21 96/62 100 Nasal Cannula 3.0 11/22/16 11:20 61 26 89/59 100 Simple Mask 6.0 11/22/16 11:13 62 25 88/60 100 Simple Mask 6.0 11/22/16 11:13 64 22 100 11/22/16 11:08 97.3 64 21 81/45 100 Simple Mask 6.0 11/22/16 08:00 97.3 63 18 99/59 99 Room Air 11/22/16 04:00 97.7 67 18 114/68 99 Room Air 11/22/16 00:00 97.5 63 18 105/62 100 Room Air 11/21/16 20:00 98.1 72 14 100/62 100 Room Air Intake and Output 11/21/16 11/22/16 19:00 07:00 Intake Total 975.0 ml 612 ml Output Total 550 ml 400 ml Balance 425.0 ml 212 ml Intake Oral 500 ml IV Total 475.0 ml 612 ml Output Urine Total 550 ml 400 ml # Bowel Movements 1 General Appearance: WD/WN HEENT: normocephalic, atraumatic Respiratory/Chest: chest wall non-tender, lungs clear Cardiovascular: normal peripheral pulses, normal rate Abdomen: normal bowel sounds, soft, non tender Extremities: no cyanosis Neurologic/Psychiatric: pigskin trimmer II-XII grossly normal, no motor/sensory deficits Lymphatic: no neck adenopathy Musculoskeletal: normal muscle bulk Laboratory Tests 11/22/16 08:20: White Blood Count 12.7H, Red Blood Count 2.88L, Hemoglobin 9.2L, Hematocrit 28.0L, Mean Corpuscular Volume 97, Mean Corpuscular Hemoglobin 31.9H, Mean Corpuscular Hemoglobin Concent 32.9, Red Cell Distribution Width 14.9H, Platelet Count 246, Mean Platelet Volume 6.6, Neutrophils (%) (Auto) 79.9H, Lymphocytes (%) (Auto) 5.7L, Monocytes (%) (Auto) 3.7, Eosinophils (%) (Auto) 8.5H, Basophils (%) (Auto) 2.2H, Prothrombin Time 10.9, Prothromb Time International Ratio 1.1, Activated Partial Thromboplast Time 30, Sodium Level 141, Potassium Level 3.2L, Chloride Level 100, Carbon Dioxide Level 25, Anion Gap 16H, Blood Urea Nitrogen 22, Creatinine 1.3H, Estimat Glomerular Filtration Rate 55.2, Glucose Level 103, Calcium Level 8.0L, Total Bilirubin 3.8H, Direct Bilirubin 2.0H, Aspartate Amino Transf (AST/SGOT) 79H, Alanine Aminotransferase (ALT/SGPT) 66H, Alkaline Phosphatase 269H, Total Protein 5.6L, Albumin 2.6L, Globulin 3.0, Albumin/Globulin Ratio 0.8L Current Medications Medications (Trade) Dose Ordered Sig/Courtney Route PRN Reason Start Time Stop Time Status Last Admin Dose Admin Acetaminophen (Tylenol) 650 mg Q4H PRN ORAL fever 11/20/16 16:45 12/20/16 16:44 Al Hydroxide/Mg Hydroxide (Mylanta II) 30 ml Q6H PRN ORAL dyspepsia 11/20/16 16:45 12/20/16 16:44 Atorvastatin Calcium (Lipitor) 20 mg BEDTIME ORAL 11/20/16 21:00 12/20/16 20:59 11/21/16 21:12 Dextrose STAT PRN IV Hypoglycemia 11/20/16 16:45 12/20/16 16:44 Dextrose/Sodium Chloride (D5 0.45% NS) 1,000 ml @ 75 mls/hr [id number] IV 11/20/16 17:40 12/20/16 17:39 11/22/16 13:14 Diphenhydramine HCl (Benadryl) 25 mg Q6H PRN ORAL Itching/Pruritis 11/20/16 16:45 12/20/16 16:44 Finasteride (Proscar) 5 mg DAILY ORAL 11/21/16 09:00 12/21/16 08:59 11/21/16 10:33 Heparin Sodium (Porcine) (Heparin 5000 units/ml) 5,000 units EVERY 12 HOURS SUBQ 11/20/16 21:00 12/20/16 20:59 11/21/16 10:39 Morphine Sulfate (Morphine Sulfate) 2 mg EVERY 4 HOURS PRN IVP severe Pain (Pain Scale 7-10) 11/20/16 16:45 11/27/16 16:44 11/21/16 03:34 Nitroglycerin (Ntg) 0.4 mg Q5M X 3 DOSES PRN SL Prn Chest Pain 11/20/16 16:45 12/20/16 16:44 Ondansetron HCl (Zofran) 4 mg Q6H PRN IVP Nausea & Vomiting 11/20/16 16:45 12/20/16 16:44 Pantoprazole (Protonix) 40 mg DAILY IVP 11/22/16 09:00 12/22/16 08:59 Piperacillin Sod/ Tazobactam Sod/ Sodium Chloride (Zosyn/Sodium Chloride 100ml bag) 100 ml @ 25 mls/hr Q8HR IVPB 11/20/16 22:00 11/27/16 21:59 11/22/16 14:54 Polyethylene Glycol (Miralax) 17 gm HSPRN PRN ORAL Constipation 11/20/16 16:45 12/20/16 16:44 Tamsulosin HCl 0.4 mg 0.4 mg BEDTIME ORAL 11/20/16 21:00 12/20/16 20:59 11/21/16 21:12 Temazepam (Restoril) 15 mg HSPRN PRN ORAL Insomnia 11/20/16 16:45 11/27/16 16:44 MILES KNUTSON Nov 22, 2016 17:25
[2016-11-22] MEDS ORDERED: D5 1/2NS 1000ml IV ONE (18:26)
--- NOTE | 2016-11-22 19:58 | Procedure Note ---
SURGEON: Jovany York M.D. PROCEDURE: Endoscopic ultrasound with fine-needle aspiration. ANESTHESIA: Per Dr. Null. INSTRUMENT: Olympus adult flexible upper endoscope and flexible EUS scope. INDICATION: Pancreatic mass. REASON FOR PROCEDURE: The procedure, risks, benefits, and possible consequences, including hemorrhage, aspiration, perforation and infection, and alternative treatments, were explained to the patient/legal guardian by Dr. Jovany York and the patient/legal guardian understood and accepted these risks. DESCRIPTION OF PROCEDURE: After informed consent was obtained and the patient was adequately sedated, EUS scope was advanced from the mouth into the esophagus and into the GE junction. Starting scanning at GE junction, we saw about 1.8 cm to celiac axis lymph node. The patient had evidence of ascites and possible carcinomatosis. Pancreatic body and tail looks normal. No pancreatic duct dilatation was seen in the body or tail of the pancreas. Then, the scope was advanced to the duodenal bulb and second portion of duodenum. This procedure was very challenging given patient has a metallic stent and a plastic stent in place in the distal common bile duct. Shadowing from making difficult to see the obvious mass, but this seems to be a 4 cm mass in the uncinate process/head of the pancreas. As I mentioned, this was a very challenging given the uncinate process location of this tumor and given there is a 2 stents going through it making it very difficult to obviously seated pancreatic mass treated well with a shadowing of the metallic stent. We did a 3 passes of 22-gauge core needle biopsy of this area, which seems to be a mass and the patella in the presence of the pathologist and tissue was sent for evaluation. The patient also has no peripancreatic lymphadenopathy. SUMMARY OF FINDINGS: 1. Very difficult and challenging procedure given the uncinate process location of this tumor on given there was a metallic stent in its shadowing. 2. 1.8 cm celiac axis lymphadenopathy. 3. Ascites with possible carcinomatosis. 4. 4 cm mass in the uncinate process status post FNA x3 with 22-gauge core needle. 5. Peripancreatic lymphadenopathy. RECOMMENDATIONS: Follow up biopsies and treat accordingly. I want to thank Dr. Shireen Card, for this kind referral. Jovany Mauricio York DR: Sammi JOB#: [id number] CC: Shireen Card M.D.; Fax#: [phone]
[2016-11-22] MEDS: Tamsulosin 0.4mg cap ORAL SCH (21:07)
[2016-11-23] VITALS: BP 105/64
[2016-11-23 04:00] VITALS: BP 101/81
[2016-11-23 07:05] LABS: INR 1.1 (0.9-1.1); PROTHROMBIN TIME 10.9 SEC (9.30-11.50)
[2016-11-23 07:15] LABS: BASOPHILS % (AUTO) 2.8 % (0.0-2.0); EOSINOPHILS % (AUTO) 4.5 % (0.0-3.0); MEAN CORPUSCULAR HGB CONC 33.6 G/DL (32.0-36.0); MEAN CORPUSCULAR VOLUME 95 FL (80-99); MEAN PLATELET VOLUME 6.6 FL (6.5-10.1); MONOCYTES % (AUTO) 2.3 % (1.0-10.0); NEUTROPHILS % (AUTO) 82.3 % (45.0-75.0); PLATELET COUNT 241 K/UL (150-450); RED CELL DISTRIBUTION WIDTH 14.5 % (11.6-14.8); WHITE BLOOD COUNT 13.8 K/UL (4.8-10.8)
[2016-11-23 07:29] LABS: ALANINE AMINOTRANSFERASE 54 U/L (3-41); ALBUMIN/GLOBULIN RATIO 0.8 (1.0-2.7); ANION GAP 15 (5-15); ASPARTATE AMINO TRANSFERASE 59 U/L (5-40); CALCIUM 7.8 mg/dL (8.6-10.2); CARBON DIOXIDE 25 mEQ/L (20-30); CHLORIDE 103 mEQ/L (98-107); CREATININE 1.2 mg/dL (0.7-1.2); GLOMERULAR FILTRATION RATE > 60 mL/min (>60); HEMOLYSIS 0; POTASSIUM 3.3 mEQ/L (3.4-4.9); SODIUM 143 mEQ/L (135-145)
[2016-11-23 07:56] LABS: MAGNESIUM 1.7 mg/dL (1.7-2.5); PHOSPHORUS 2.9 mg/dL (2.5-4.8)
[2016-11-23 08:00] VITALS: BP 89/62
[2016-11-23 08:04] LABS: BILIRUBIN,DIRECT 1.6 mg/dL (0.1-0.3)
[2016-11-23] MEDS: Pantoprazole Inj IVP SCH (08:22)
[2016-11-23] MEDS: Heparin 5000 units/ml inj SUBQ SCH (08:29)
--- NOTE | 2016-11-23 08:29 | Diagnostic Imaging Report ---
Indication: Chest Pain Comparison: None A single view chest radiograph was obtained. Findings: Vague left basilar density noted. Small effusion and/or infiltrate could be present. Heart size is within normal limits. Pulmonary vascularity is normal. Bones are unremarkable. Impression: Left pleural effusion and/or infiltrate
--- NOTE | 2016-11-23 08:29 | Diagnostic Imaging Report ---
Indications: Chest pain, pancreatic mass Technique: Continuous helical CT imaging of the thorax was performed with automatic exposure control, following bolus intravenous administration of nonionic iodine contrast, on a Siemens sensation [address] scanner. Axial images reconstructed at 3 mm slice thickness and 1.5 mm interval. Coronal and sagittal images were reconstructed at 3 mm slice thickness. Coronal and sagittal two-dimensional maximum intensity projection and three-dimensional volume-rendered images were reconstructed on a stand alone workstation. CTDI volume(s): 13x2, 20 mGy Total DLP: 673 mGy-cm Findings: Comparison: None The main pulmonary artery, right and left pulmonary arteries, and pulmonary artery branches to the level of aorta branching in the left lower lobe, elsewhere the third order branching are patent and well-opacified. No intraluminal filling defects are demonstrated. More peripheral branches in left lower lobe are less well opacified and partially obscured by surrounding parenchymal consolidation and volume loss. Subsegmental parenchymal consolidation and volume loss are present in the dependent portion of the right lower lobe. Small bibasal pleural effusions are present, left greater than right. Heart is normal in size. No pericardial abnormality is demonstrated. Scattered arterial mural calcifications are present. Thoracic aorta and great vessels are patent and well-opacified, normal in caliber and configuration. No evidence of aneurysm, dissection, or leak. No enlarged mediastinal or hilar lymph nodes detected. Chest wall soft tissues nonfocal. Evaluation of imaged upper abdominal anatomy limited due to earlier arterial phase of imaging. Pancreas appears diffusely enlarged and heterogeneous with surrounding stranding and fluid. Moderate ascites. Bile stent is present in the common bile duct, incompletely imaged, gas and fluid-filled. Gas is present throughout mildly dilated intrahepatic bile ducts. Multiple small stones in gallbladder lumen. Gallbladder wall thickening not excludable. Small-caliber soft tissue nodularity adjacent to celiac axis. Mild stranding/nodularity in the omentum. Focal calcification and scarring upper pole cortex left kidney. Bridging osteophytes throughout thoracic spine. No focal skeletal lesion identified. Impression: No evidence of pulmonary embolism, with limitation as described. One or more small peripheral pulmonary emboli in the left lower lobe could be missed. Bilateral pulmonary lower lobe atelectasis. Superimposed pneumonia on left not excludable Bilateral pleural effusions, left greater than right, nonspecific, could be secondary to presence of ascites Mild arteriosclerosis. No evidence of acute thoracic aortic pathology Enlarged heterogeneous pancreas with surrounding changes described suggesting acute pancreatitis. Neoplasm not excludable. Biliary stents in place, patent pneumobilia Moderate ascites Mesenteric stranding/nodularity may be secondary to ascites. Carcinomatosis not excludable. Suggestion of mesenteric root adenopathy versus small varices Cholelithiasis Degenerative spondylosis
--- NOTE | 2016-11-23 08:30 | Diagnostic Imaging Report ---
Indications: Abdominal pain, history of pancreatic malignancy Technique: Coronal and axial T2-weighted single shot fast spin-echo breath-hold, coronal and coronal oblique thick slab MRCP, axial T2-weighted fat-saturated fast spin-echo, 2-D FIESTA, dual echo spoiled gradient, and LAVA sequences of the abdomen performed prior to IV gadolinium administration. Serial axial LAVA sequences performed following IV gadolinium administration. Findings: Comparison: None Motion artifact degrades all images. The pancreas is diffusely enlarged and surrounded by significant edema/fluid. It demonstrates homogeneous parenchymal signal characteristics and homogeneous enhancement without evidence of discrete focal mass. Stent traverses the common bile duct into the second portion duodenal lumen. Bile ducts are mildly dilated with intraluminal gas. Subcentimeter circumscribed fluid signal foci in hepatic segments 4A, IVb,, 6, and 8. No focal solid liver lesion identified. Small signal void filling defects in gallbladder lumen. Mild gallbladder wall thickening. Moderate diffuse ascites. No intraperitoneal loculated fluid collections demonstrated. Spleen, adrenal glands, kidneys, remainder of imaged upper abdominal anatomy unremarkable. Small bibasal pleural effusions. IMPRESSION: Diffuse pancreatic enlargement and surrounding edema compatible with acute pancreatitis. No imaging evidence of neoplasm. Patent metal biliary stent with pneumobilia Cholelithiasis. Gallbladder wall thickening likely secondary to presence of ascites. Moderate ascites, nonspecific Nonspecific subcentimeter liver lesions most likely cysts Small bilateral pleural effusions most likely secondary to presence of ascites
--- NOTE | 2016-11-23 09:14 | Consultation ---
Consult Note Consult Note ID CONSULT: Dict# [id number] Assessment/Plan ASSESSMENT: 66 y/o male with: // Probable cholangitis / obstructive jaundice - SP biliary stent OSH with pneumobilia // Leukocytosis - improved, afebrile ( pancreatitis, CA contributing ) // Probable metastatic pancreatic CA / peritoneal carcinomatosis - SP EUS, FNA x3 - path pending // Acute pancreatitis // Elevated LFTs // Urinary retention, hematuria SP holcomb // L>R pleural effusions // VRE colonized // NKDA // Full Code PLAN: - continue zosyn d# . Ok to complete course with PO cipro + flagyl at discharge - check UA, UCx - f/u path - monitor CBC, temperatures - monitor CMP Thanks! Will follow MARÍA SARGENT Nov 23, 2016 09:14
--- NOTE | 2016-11-23 10:20 | Diagnostic Imaging Report ---
Indications: DYSPNEA Technique: Portable AP chest Findings: Comparison: Chest radiograph 11/20/16; CTA chest 11/21/16 Again, poor inspiration limits evaluation. Linearly oriented consolidative opacity persists in the left lung base with indistinctness of the hemidiaphragmatic silhouette and costophrenic angle. Visualized portions of right lung and pleura clear. Heart size and pulmonary vasculature remain within normal limits. IMPRESSION: Persistent left basal opacity corresponding to atelectasis and pleural effusion on CT scan, not significantly changed No new abnormality identified.
--- NOTE | 2016-11-23 11:10 | Pulmonology Progress Note ---
Assessment/Plan Problems: (1) Sepsis (2) Jaundice (3) Hypoalbuminemia (4) Pancreatic cancer (5) Abdominal pain (6) Biliary obstruction (7) Dyspnea (8) Anemia Assessment/Plan Urology evaluation continue abc cxr showing LLL atelectasis/ infiltrate continue antibiotics check cultures awaiting biopsy results sputum c/s respiratory treatment Subjective ROS Limited/Unobtainable: No Interval Events: had hematuria Constitutional: Reports: no symptoms Allergies: Coded Allergies: No Known Allergies (Unverified , 11/20/16) Objective Last 24 Hour Vital Signs Date Time Temp Pulse Resp B/P Pulse Ox O2 Delivery O2 Flow Rate FiO2 11/23/16 08:32 97.0 11/23/16 08:00 97.0 90 18 89/62 100 Room Air 11/23/16 04:00 98.0 69 19 101/81 100 Room Air 11/23/16 00:00 98.2 70 19 105/64 100 Room Air 11/22/16 20:02 98.1 80 15 105/61 100 Room Air 11/22/16 16:00 97.4 65 15 105/64 100 Nasal Cannula 2.0 11/22/16 14:00 97.0 73 18 97/67 100 Nasal Cannula 3.0 11/22/16 13:00 97.5 72 19 91/61 100 Nasal Cannula 3.0 11/22/16 11:57 59 21 100 11/22/16 11:35 98.5 59 21 105/67 100 Nasal Cannula 3.0 11/22/16 11:30 58 21 100/65 100 Nasal Cannula 3.0 11/22/16 11:25 58 21 96/62 100 Nasal Cannula 3.0 11/22/16 11:20 61 26 89/59 100 Simple Mask 6.0 11/22/16 11:13 62 25 88/60 100 Simple Mask 6.0 11/22/16 11:13 64 22 100 Intake and Output 11/22/16 11/23/16 19:00 07:00 Intake Total 490 ml Output Total 750 ml 450 ml Balance -260 ml -450 ml Intake Oral 240 ml IV Total 250 ml Output Urine Total 750 ml 450 ml Estimated Blood Loss 0 ml # Bowel Movements 1 HEENT: normocephalic, atraumatic Respiratory/Chest: chest wall non-tender, lungs clear Cardiovascular: normal peripheral pulses, normal rate Abdomen: normal bowel sounds, soft, non tender Genitourinary: normal external genitalia Skin: no rash, no lesions Neurologic/Psychiatric: prop sawyer II-XII grossly normal, no motor/sensory deficits Lymphatic: no neck adenopathy Microbiology Date/Time Source Procedure Growth Status 11/21/16 00:30 Nasal Nares MRSA Culture - Final NO METHICILLIN RESISTANT STAPH AUREUS... Complete 11/21/16 00:30 Rectum VRE Culture - Final Enterococcus Faecium - Vre Complete Laboratory Tests 11/22/16 17:18: Carcinoembryonic Antigen 3.8H 11/23/16 05:10: White Blood Count 13.8H, Red Blood Count 2.60L, Hemoglobin 8.3L, Hematocrit 24.8L, Mean Corpuscular Volume 95, Mean Corpuscular Hemoglobin 32.0H, Mean Corpuscular Hemoglobin Concent 33.6, Red Cell Distribution Width 14.5, Platelet Count 241, Mean Platelet Volume 6.6, Neutrophils (%) (Auto) 82.3H, Lymphocytes ( %) (Auto) 8.0L, Monocytes (%) (Auto) 2.3, Eosinophils (%) (Auto) 4.5H, Basophils (%) (Auto) 2.8H, Prothrombin Time 10.9, Prothromb Time International Ratio 1.1, Activated Partial Thromboplast Time 33, Sodium Level 143, Potassium Level 3.3L, Chloride Level 103, Carbon Dioxide Level 25, Anion Gap 15, Blood Urea Nitrogen 22, Creatinine 1.2, Estimat Glomerular Filtration Rate > 60, Glucose Level 141H, Calcium Level 7.8L, Phosphorus Level 2.9, Magnesium Level 1.7, Total Bilirubin 3.1H, Direct Bilirubin 1.6H, Aspartate Amino Transf (AST/ SGOT) 59H, Alanine Aminotransferase (ALT/SGPT) 54H, Alkaline Phosphatase 259H, Total Protein 5.0L, Albumin 2.3L, Globulin 2.7, Albumin/Globulin Ratio 0.8L 11/23/16 09:55: Urine Color [Pending], Urine Appearance [Pending], Urine pH [Pending], Urine Specific [place] [Pending], Urine Protein [Pending], Urine Glucose (UA) [Pending ], Urine Ketones [Pending], Urine Occult Blood [Pending], Urine Nitrite [Pending ], Urine Bilirubin [Pending], Urine Urobilinogen [Pending], Urine Leukocyte Esterase [Pending], Urine RBC [Pending], Urine WBC [Pending], Urine Squamous Epithelial Cells [Pending], Urine Bacteria [Pending] Current Medications Medications (Trade) Dose Ordered Sig/Courtney Route PRN Reason Start Time Stop Time Status Last Admin Dose Admin Acetaminophen (Tylenol) 650 mg Q4H PRN ORAL fever 11/20/16 16:45 12/20/16 16:44 11/23/16 07:33 Al Hydroxide/Mg Hydroxide (Mylanta II) 30 ml Q6H PRN ORAL dyspepsia 11/20/16 16:45 12/20/16 16:44 Atorvastatin Calcium (Lipitor) 20 mg BEDTIME ORAL 11/20/16 21:00 12/20/16 20:59 11/22/16 21:07 Dextrose STAT PRN IV Hypoglycemia 11/20/16 16:45 12/20/16 16:44 Dextrose/Sodium Chloride (D5 0.45% NS) 1,000 ml @ 75 mls/hr [id number] IV 11/20/16 17:40 12/20/16 17:39 11/22/16 21:17 Diphenhydramine HCl (Benadryl) 25 mg Q6H PRN ORAL Itching/Pruritis 11/20/16 16:45 12/20/16 16:44 Finasteride (Proscar) 5 mg DAILY ORAL 11/21/16 09:00 12/21/16 08:59 11/23/16 08:22 Heparin Sodium (Porcine) (Heparin 5000 units/ml) 5,000 units EVERY 12 HOURS SUBQ 11/20/16 21:00 12/20/16 20:59 11/23/16 08:29 Morphine Sulfate (Morphine Sulfate) 2 mg EVERY 4 HOURS PRN IVP severe Pain (Pain Scale 7-10) 11/20/16 16:45 11/27/16 16:44 11/21/16 03:34 Nitroglycerin (Ntg) 0.4 mg Q5M X 3 DOSES PRN SL Prn Chest Pain 11/20/16 16:45 12/20/16 16:44 Ondansetron HCl (Zofran) 4 mg Q6H PRN IVP Nausea & Vomiting 11/20/16 16:45 12/20/16 16:44 Pantoprazole (Protonix) 40 mg DAILY IVP 11/22/16 09:00 12/22/16 08:59 11/23/16 08:22 Piperacillin Sod/ Tazobactam Sod/ Sodium Chloride (Zosyn/Sodium Chloride 100ml bag) 100 ml @ 25 mls/hr Q8HR IVPB 11/20/16 22:00 11/27/16 21:59 11/23/16 06:13 Polyethylene Glycol (Miralax) 17 gm HSPRN PRN ORAL Constipation 11/20/16 16:45 12/20/16 16:44 Tamsulosin HCl 0.4 mg 0.4 mg BEDTIME ORAL 11/20/16 21:00 12/20/16 20:59 11/22/16 21:07 Temazepam (Restoril) 15 mg HSPRN PRN ORAL Insomnia 11/20/16 16:45 11/27/16 16:44 MILES KNUTSON Nov 23, 2016 11:10
[2016-11-23 11:31] LABS: APPEARANCE,URINE CLOUDY; KETONES,URINE NEGATIVE (NEGATIVE); LEUKOCYTE ESTERASE ,URINE 1+ (NEGATIVE); NITRITE,URINE NEGATIVE (NEGATIVE); PH,URINE 5 (4.5-8.0); PROTEIN,URINE 3+ (NEGATIVE); UROBILINOGEN,URINE 1 MG/DL (0.0-1.0)
--- NOTE | 2016-11-23 11:47 | Consultation ---
History of Present Illness General Date patient seen: Nov 23, 2016 Time patient seen: 11:44 Chief Complaint: General Complaint Referring physician: ROBIN BURLESON Reason for Consultation: ABDOMINAL PAIN Present Illness HPI 66 yo male with recent onset of hematuria after significant pain yesterday. No known history, never had issue before. Reports having a catheter since transferring from [place]. Has likely carcinomatosis. Underwent ERCP recently. Currently very sensitive around catheter and having lower abdominal discomfort. Allergies: Coded Allergies: No Known Allergies (Unverified , 11/20/16) Medication History Scheduled Atorvastatin Calcium* (Atorvastatin Calcium*), 20 MG ORAL BEDTIME, (Reported) Finasteride* (Proscar*), 5 MG ORAL DAILY, (Reported) Tamsulosin Hcl (Tamsulosin Hcl*), 0.4 MG ORAL BEDTIME, (Reported) Patient History History Provided By: Patient Healthcare decision maker Lanie Lee Resuscitation status Full Code Advanced Directive on File No Past Medical/Surgical History Past Medical/Surgical History: (1) Jaundice (2) Anemia (3) Pancreatic cancer (4) Abdominal pain (5) Biliary obstruction Review of Systems Constitutional: Reports: weakness Eye: Denies: acuity changes, blurred vision, discharge, double vision, eye pain , no symptoms, nose congestion, nose pain, other, see HPI, tearing ENT: Denies: ear discharge, ear pain, hearing loss, mouth pain, nasal discharge , no symptoms, nose congestion, nose pain, other, see HPI, throat pain, throat swelling Respiratory: Denies: MORALES, cough, no symptoms, orthopnea, other, see HPI, shortness of breath, sputum, stridor, wheezing Cardiovascular: Denies: PND, chest pain, edema, no symptoms, other, palpitations, see HPI, syncope Gastrointestinal: Reports: abdominal pain Genitourinary: Reports: hematuria, Denies: discharge, dysuria, frequency, incontinence, no symptoms, other, pain, retention, see HPI, urgency, vag bleed/ dc Musculoskeletal: Denies: back pain, gout, joint pain, joint swelling, muscle pain, muscle stiffness, no symptoms, other, see HPI Skin: Denies: change in color, change in hair/nails, dryness, lesions, no symptoms, other, rash, see HPI Psychiatric: Denies: HI, SI, anxiety, depressed feelings, emotional problems, hallucinations, no symptoms, other, prior hx, see HPI Neurological: Denies: dizziness, focal weakness, headache, no symptoms, numbness, other, paresthesia, see HPI, seizure, syncope, tingling, tremors Endocrine: Denies: excessive sweating, flushing, increased thirst, increased urine, intolerance to temperature, no symptoms, other, see HPI, unexplained weight loss Hematologic/Lymphatic: Denies: anemia, blood clots, diathesis, easy bleeding, easy bruising, no symptoms, other, see HPI, swollen glands Physical Exam General Appearance: mild distress Neck: non-tender Cardiovascular/Chest: normal rate, regular rhythm Abdomen: soft Genitourinary/Rectal: other Last 24 Hour Vital Signs Date Time Temp Pulse Resp B/P Pulse Ox O2 Delivery O2 Flow Rate FiO2 11/23/16 08:32 97.0 11/23/16 08:00 97.0 90 18 89/62 100 Room Air 11/23/16 04:00 98.0 69 19 101/81 100 Room Air 11/23/16 00:00 98.2 70 19 105/64 100 Room Air 11/22/16 20:02 98.1 80 15 105/61 100 Room Air 11/22/16 16:00 97.4 65 15 105/64 100 Nasal Cannula 2.0 11/22/16 14:00 97.0 73 18 97/67 100 Nasal Cannula 3.0 11/22/16 13:00 97.5 72 19 91/61 100 Nasal Cannula 3.0 11/22/16 11:57 59 21 100 Intake and Output 11/22/16 11/23/16 19:00 07:00 Intake Total 490 ml Output Total 750 ml 450 ml Balance -260 ml -450 ml Intake Oral 240 ml IV Total 250 ml Output Urine Total 750 ml 450 ml Estimated Blood Loss 0 ml # Bowel Movements 1 Laboratory Tests Test 11/22/16 17:18 11/23/16 05:10 11/23/16 09:55 Carcinoembryonic Antigen 3.8 ng/mL H White Blood Count 13.8 K/UL (4.8-10.8) H Red Blood Count 2.60 M/UL (4.70-6.10) L Hemoglobin 8.3 G/DL (14.2-18.0) L Hematocrit 24.8 % (42.0-52.0) L Mean Corpuscular Volume 95 FL (80-99) Mean Corpuscular Hemoglobin 32.0 PG (27.0-31.0) H Mean Corpuscular Hemoglobin Concent 33.6 G/DL (32.0-36.0) Red Cell Distribution Width 14.5 % (11.6-14.8) Platelet Count 241 K/UL (150-450) Mean Platelet Volume 6.6 FL (6.5-10.1) Neutrophils (%) (Auto) 82.3 % (45.0-75.0) H Lymphocytes (%) (Auto) 8.0 % (20.0-45.0) L Monocytes (%) (Auto) 2.3 % (1.0-10.0) Eosinophils (%) (Auto) 4.5 % (0.0-3.0) H Basophils (%) (Auto) 2.8 % (0.0-2.0) H Prothrombin Time 10.9 SEC (9.30-11.50) Prothromb Time International Ratio 1.1 (0.9-1.1) Activated Partial Thromboplast Time 33 SEC (23-33) Sodium Level 143 mEQ/L (135-145) Potassium Level 3.3 mEQ/L (3.4-4.9) L Chloride Level 103 mEQ/L (98-107) Carbon Dioxide Level 25 mEQ/L (20-30) Anion Gap 15 (5-15) Blood Urea Nitrogen 22 mg/dL (7-23) Creatinine 1.2 mg/dL (0.7-1.2) Estimat Glomerular Filtration Rate > 60 mL/min (>60) Glucose Level 141 mg/dL (74-106) H Calcium Level 7.8 mg/dL (8.6-10.2) L Phosphorus Level 2.9 mg/dL (2.5-4.8) Magnesium Level 1.7 mg/dL (1.7-2.5) Total Bilirubin 3.1 mg/dL (0.0-1.2) H Direct Bilirubin 1.6 mg/dL (0.1-0.3) H Aspartate Amino Transf (AST/SGOT) 59 U/L (5-40) H Alanine Aminotransferase (ALT/SGPT) 54 U/L (3-41) H Alkaline Phosphatase 259 U/L (40-129) H Total Protein 5.0 g/dL (6.6-8.7) L Albumin 2.3 g/dL (3.5-5.2) L Globulin 2.7 g/dL Albumin/Globulin Ratio 0.8 (1.0-2.7) L Urine Color Brown Urine Appearance Cloudy Urine pH 5 (4.5-8.0) Urine Specific [place] 1.020 (1.005-1.035) Urine Protein 3+ (NEGATIVE) H Urine Glucose (UA) Negative (NEGATIVE) Urine Ketones Negative (NEGATIVE) Urine Occult Blood 5+ (NEGATIVE) H Urine Nitrite Negative (NEGATIVE) Urine Bilirubin 1+ (NEGATIVE) H Urine Ictotest Pending Urine Urobilinogen 1 MG/DL (0.0-1.0) H Urine Leukocyte Esterase 1+ (NEGATIVE) H Urine RBC Pending Urine WBC Pending Urine Squamous Epithelial Cells Pending Urine Bacteria Pending Height (Feet): 5 Height (Inches): 5.00 Weight (Pounds): 152 Medications Current Medications Medications (Trade) Dose Ordered Sig/Courtney Route PRN Reason Start Time Stop Time Status Last Admin Dose Admin Acetaminophen (Tylenol) 650 mg Q4H PRN ORAL fever 11/20/16 16:45 12/20/16 16:44 11/23/16 07:33 Al Hydroxide/Mg Hydroxide (Mylanta II) 30 ml Q6H PRN ORAL dyspepsia 11/20/16 16:45 12/20/16 16:44 Atorvastatin Calcium (Lipitor) 20 mg BEDTIME ORAL 11/20/16 21:00 12/20/16 20:59 11/22/16 21:07 Dextrose STAT PRN IV Hypoglycemia 11/20/16 16:45 12/20/16 16:44 Dextrose/Sodium Chloride (D5 0.45% NS) 1,000 ml @ 75 mls/hr [id number] IV 11/20/16 17:40 12/20/16 17:39 11/22/16 21:17 Diphenhydramine HCl (Benadryl) 25 mg Q6H PRN ORAL Itching/Pruritis 11/20/16 16:45 12/20/16 16:44 Finasteride (Proscar) 5 mg DAILY ORAL 11/21/16 09:00 12/21/16 08:59 11/23/16 08:22 Morphine Sulfate (Morphine Sulfate) 2 mg EVERY 4 HOURS PRN IVP severe Pain (Pain Scale 7-10) 11/20/16 16:45 11/27/16 16:44 11/21/16 03:34 Nitroglycerin (Ntg) 0.4 mg Q5M X 3 DOSES PRN SL Prn Chest Pain 11/20/16 16:45 12/20/16 16:44 Ondansetron HCl (Zofran) 4 mg Q6H PRN IVP Nausea & Vomiting 11/20/16 16:45 12/20/16 16:44 Pantoprazole (Protonix) 40 mg DAILY IVP 11/22/16 09:00 12/22/16 08:59 11/23/16 08:22 Piperacillin Sod/ Tazobactam Sod/ Sodium Chloride (Zosyn/Sodium Chloride 100ml bag) 100 ml @ 25 mls/hr Q8HR IVPB 11/20/16 22:00 11/27/16 21:59 11/23/16 06:13 Polyethylene Glycol (Miralax) 17 gm HSPRN PRN ORAL Constipation 11/20/16 16:45 12/20/16 16:44 Promethazine HCl/ Codeine (Phenergan with Codeine) 5 ml Q4H PRN ORAL For Cough 11/23/16 12:00 12/23/16 11:59 Tamsulosin HCl 0.4 mg 0.4 mg BEDTIME ORAL 11/20/16 21:00 12/20/16 20:59 11/22/16 21:07 Temazepam (Restoril) 15 mg HSPRN PRN ORAL Insomnia 11/20/16 16:45 11/27/16 16:44 Objective Narrative MRI: normal kidney/bladder, large prostate Assessment/Plan Status: stable Assessment/Plan 66 yo male with likely catheter trauma associated hematuria. seems to be improving already. Catheter draining well. Likely accompanying bladder spasms as well. 1. continue holcomb 2. agree with urine culture and empiric abx 3. recommend ointment to penis 4. valium 2 mg IV prn spasm Omar Reid M.D. Nov 23, 2016 11:47
[2016-11-23 11:49] LABS: BACTERIA,URINE FEW /HPF; RBC,URINE TNTC /HPF (0 - 0); SQUAMOUS EPITHELIAL CELL,UR OCCASIONAL /LPF (NONE/OCC)
[2016-11-23 12:00] VITALS: BP 96/57
[2016-11-23] MEDS ORDERED: Promethazine/Codeine 5ml UD ORAL PRN (12:00)
[2016-11-23] MEDS: D5 1/2NS 1,000 ML IV SCH (12:04)
[2016-11-23 12:55] LABS: INR 1.1 (0.9-1.1); PROTHROMBIN TIME 10.7 SEC (9.30-11.50)
[2016-11-23 13:57] LABS: ERYTHROCYTE SEDIMENTATION RATE 115 MM/HR (0-20); PATH BLOOD SMEAR/OMC SENT TO PATHOLOGIST
[2016-11-23 14:13] LABS: ICTOTEST POSITIVE
[2016-11-23 14:24] LABS: RETICULOCYTE COUNT 1.1 % (0.0-2.0)
[2016-11-23] MEDS: Lidocaine HCl 2% Jelly 5ml Tube TOPIC PRN (16:07)
--- NOTE | 2016-11-23 16:34 | General Progress Note ---
Assessment/Plan Assessment/Plan Assessment (1) Anemia (2) Biliary obstruction (3) Hypoalbuminemia (4) Malnutrition (5) Abdominal pain (6) Pancreatic cancer (7) Jaundice (8) Leukocytosis Plan monitor H&H, transfuse prn f/u path ppi fu labs Subjective Allergies: Coded Allergies: No Known Allergies (Unverified , 11/20/16) Subjective Feels OK ate OK some hematuria Objective Last 24 Hour Vital Signs Date Time Temp Pulse Resp B/P Pulse Ox O2 Delivery O2 Flow Rate FiO2 11/23/16 12:00 97.0 67 19 96/57 100 Room Air 11/23/16 08:32 97.0 11/23/16 08:00 97.0 90 18 89/62 100 Room Air 11/23/16 04:00 98.0 69 19 101/81 100 Room Air 11/23/16 00:00 98.2 70 19 105/64 100 Room Air 11/22/16 20:02 98.1 80 15 105/61 100 Room Air Intake and Output 11/22/16 11/23/16 19:00 07:00 Intake Total 490 ml Output Total 750 ml 450 ml Balance -260 ml -450 ml Intake Oral 240 ml IV Total 250 ml Output Urine Total 750 ml 450 ml Estimated Blood Loss 0 ml # Bowel Movements 1 Laboratory Tests 11/22/16 17:18: Carcinoembryonic Antigen 3.8H 11/23/16 05:10: White Blood Count 13.8H, Red Blood Count 2.60L, Hemoglobin 8.3L, Hematocrit 24.8L, Mean Corpuscular Volume 95, Mean Corpuscular Hemoglobin 32.0H, Mean Corpuscular Hemoglobin Concent 33.6, Red Cell Distribution Width 14.5, Platelet Count 241, Mean Platelet Volume 6.6, Neutrophils (%) (Auto) 82.3H, Lymphocytes ( %) (Auto) 8.0L, Monocytes (%) (Auto) 2.3, Eosinophils (%) (Auto) 4.5H, Basophils (%) (Auto) 2.8H, Prothrombin Time 10.9, Prothromb Time International Ratio 1.1, Activated Partial Thromboplast Time 33, Sodium Level 143, Potassium Level 3.3L, Chloride Level 103, Carbon Dioxide Level 25, Anion Gap 15, Blood Urea Nitrogen 22, Creatinine 1.2, Estimat Glomerular Filtration Rate > 60, Glucose Level 141H, Calcium Level 7.8L, Phosphorus Level 2.9, Magnesium Level 1.7, Total Bilirubin 3.1H, Direct Bilirubin 1.6H, Aspartate Amino Transf (AST/ SGOT) 59H, Alanine Aminotransferase (ALT/SGPT) 54H, Alkaline Phosphatase 259H, Total Protein 5.0L, Albumin 2.3L, Globulin 2.7, Albumin/Globulin Ratio 0.8L 11/23/16 09:55: Urine Color Brown, Urine Appearance Cloudy, Urine pH 5, Urine Specific [place] 1.020, Urine Protein 3+H, Urine Glucose (UA) Negative, Urine Ketones Negative, Urine Occult Blood 5+H, Urine Nitrite Negative, Urine Bilirubin 1+H, Urine Ictotest Positive, Urine Urobilinogen 1H, Urine Leukocyte Esterase 1+H, Urine RBC TntcH, Urine WBC 5-10H, Urine Squamous Epithelial Cells Occasional, Urine Bacteria Few 11/23/16 11:45: Carcinoembryonic Antigen 3.9H, Prothrombin Time 10.7, Prothromb Time International Ratio 1.1, Activated Partial Thromboplast Time 34H, Erythrocyte Sedimentation Rate 115H, Reticulocyte Count 1.1, Iron Level 35L, Total Iron Binding Capacity 124L, Percent Iron Saturation 28, Unsaturated Iron Binding 89L , Lactate Dehydrogenase 214, Vitamin B12 Level 1160H, Folate [Pending] Height (Feet): 5 Height (Inches): 5.00 Weight (Pounds): 152 Objective WDWN elderly man NCAT supple CTA RRR Soft ND NT no edema non focal SHANICE ALMEIDA Nov 23, 2016 16:34
[2016-11-23 17:00] VITALS: BP 101/69
[2016-11-23 19:47] VITALS: BP 108/65
[2016-11-23] MEDS: Tamsulosin 0.4mg cap ORAL SCH (21:00)
--- NOTE | 2016-11-23 21:28 | Consultation ---
DATE OF CONSULTATION: 11/23/2016 INFECTIOUS DISEASE CONSULTATION REQUESTING PHYSICIAN: Chas Dietrich M.D. REASON FOR CONSULTATION: Leukocytosis. HISTORY OF PRESENT ILLNESS: This is a 66-year-old male admitted on 11/20/2016 for workup of probable pancreatic cancer. The patient was previously admitted at [facility] and had a nondiagnostic biopsy performed as well as metallic biliary stent placement. The patient has evidence of acute pancreatitis, obstructive jaundice, probable peritoneal carcinomatosis including leukocytosis and elevated liver function tests. Tumor markers were elevated. He is afebrile. No cultures have been sent. He is currently on Zosyn day #3 and also received one dose of Levaquin. ID now consulted to assist in management. PAST MEDICAL HISTORY: 1. BPH. 2. Urinary retention status post Garcia. 3. Hyperlipidemia. 4. Probable pancreatic cancer. PAST SURGICAL HISTORY: 1. ERCP with biliary stent placement and biopsy. 2. Endoscope ultrasound and biopsy. MEDICATIONS: 1. Zosyn. 2. Status post Levaquin x1. 3. Protonix. 4. Proscar. 5. Flomax. 6. Lipitor. 7. Subcutaneous heparin. ALLERGIES: No known drug allergies. SOCIAL HISTORY: Denies tobacco, alcohol, or illicit drug abuse. FAMILY HISTORY: Noncontributory. REVIEW OF SYSTEMS: As per history of present illness. Ten systems reviewed, all pertinent positives and negatives noted. PHYSICAL EXAMINATION: GENERAL: No apparent distress. Nontoxic appearing. VITAL SIGNS: Maximum temperature 98.2 degrees, blood pressure 101/81, heart rate in the 70s, respiratory rate 19, and saturating 100% on room air. CARDIOVASCULAR: Regular rate and rhythm. No murmurs. PULMONARY: Clear to auscultation bilaterally. ABDOMEN: Bowel sounds present. Soft and nondistended. Mild tenderness to deep palpation. Garcia catheter in place with hematuria. EXTREMITIES: Bilateral lower extremity edema. SKIN: Very dry and flaky. NEUROLOGICAL: Alert and oriented x3, nonfocal. LABORATORY AND DIAGNOSTIC DATA: White blood cell count 13.8 decreased from 19.4 with left shift, hemoglobin 8.3, and platelets 241,00. Sodium 143, potassium 3.3, chloride 103, bicarbonate 25, BUN 22, and creatinine 1.2. AST 59, ALT 54, and alkaline phosphatase 259. Total bilirubin 3.1. Direct bilirubin 1.6. Albumin 2.3. CEA 3.8 and CA 19-9 120.9. Lipase 106. Microbiology, none. Imaging, reviewed. ASSESSMENT: 1. Probable cholangitis and obstructive jaundice status post biliary stent placement at an outside hospital with pneumobilia. 2. Leukocytosis, improved and afebrile. Pancreatitis and cancer are contributing. 3. Probable metastatic pancreatic cancer with peritoneal carcinomatosis status post endoscopic ultrasound and fine needle aspiration biopsy x3 on 11/22/2016. Pathology is pending. 4. Acute pancreatitis. 5. Elevated liver function tests. 6. Urinary retention and hematuria status post Garcia placement. 7. Left greater than right pleural effusions. 8. Vancomycin-resistant enterococcus colonized. 9. No known drug allergies. 10. Full Code. PLAN: 1. Continue Zosyn day #3 of 14. Okay to complete course with oral Cipro and Flagyl at discharge. 2. Check urinalysis and culture. 3. Follow up pathology. 4. Monitor CBC and temperatures. 5. Monitor CMP. Thank you. We will follow. Bay Tomlinson M.D. DR: KESHIA JOB#: [id number] CC: Sarah Elias M.D. Arash Alborzi, M.D
[2016-11-24 00:02] VITALS: BP 123/74
[2016-11-24] MEDS: Lidocaine HCl 2% Jelly 5ml Tube TOPIC PRN ×2 (00:29→22:32)
[2016-11-24] MEDS: D5 1/2NS 1,000 ML IV SCH ×2 (00:37→15:00)
[2016-11-24 04:12] VITALS: BP 113/64
[2016-11-24 07:30] LABS: BASOPHILS % (AUTO) 4.5 % (0.0-2.0); EOSINOPHILS % (AUTO) 8.3 % (0.0-3.0); LYMPHOCYTES % (AUTO) 10.9 % (20.0-45.0); MEAN CORPUSCULAR HEMOGLOBIN 31.7 PG (27.0-31.0); MEAN CORPUSCULAR HGB CONC 33.2 G/DL (32.0-36.0); MEAN CORPUSCULAR VOLUME 96 FL (80-99); MONOCYTES % (AUTO) 3.6 % (1.0-10.0); NEUTROPHILS % (AUTO) 72.7 % (45.0-75.0); PLATELET COUNT 225 K/UL (150-450); RED BLOOD COUNT 2.68 M/UL (4.70-6.10); RED CELL DISTRIBUTION WIDTH 14.7 % (11.6-14.8); WHITE BLOOD COUNT 10.8 K/UL (4.8-10.8)
[2016-11-24 08:00] VITALS: BP 106/57
--- NOTE | 2016-11-24 08:35 | Infectious Diseases Prog Note ---
Assessment/Plan Assessment/Plan ASSESSMENT: 66 y/o male with: // Probable cholangitis / obstructive jaundice - SP biliary stent OSH with pneumobilia // Urinary retention, hematuria SP holcomb r/o UTI - UCx pending, urology following // Leukocytosis - resolved, afebrile ( pancreatitis, CA contributing ) // Probable metastatic pancreatic CA / peritoneal carcinomatosis - SP EUS, FNA x3 - path pending // Acute pancreatitis // Elevated LFTs // L>R pleural effusions // VRE colonized // NKDA // Full Code PLAN: - continue zosyn d# . Ok to complete course with PO cipro + flagyl at discharge - f/u UCx - f/u path - monitor CBC, temperatures - monitor CMP Subjective Allergies: Coded Allergies: No Known Allergies (Unverified , 11/20/16) Subjective remains afebrile. no new complaint Objective Vital Signs Last 24 Hour Vital Signs Date Time Temp Pulse Resp B/P Pulse Ox O2 Delivery O2 Flow Rate FiO2 11/24/16 04:12 96.6 63 18 113/64 100 Room Air 11/24/16 00:02 97.0 73 18 123/74 100 Room Air 11/23/16 19:47 96.8 78 20 108/65 100 Room Air 11/23/16 17:00 96.3 83 20 101/69 100 Room Air 11/23/16 12:00 97.0 67 19 96/57 100 Room Air Height (Feet): 5 Height (Inches): 5.00 Weight (Pounds): 152 General Appearance: no acute distress Respiratory/Chest: no respiratory distress Cardiovascular: normal rate, regular rhythm Abdomen: normal bowel sounds, soft, non tender, non distended Laboratory Tests Test 11/23/16 09:55 11/23/16 11:45 11/24/16 04:35 Urine Color Brown Urine Appearance Cloudy Urine pH 5 (4.5-8.0) Urine Specific [address] 1.020 (1.005-1.035) Urine Protein 3+ (NEGATIVE) H Urine Glucose (UA) Negative (NEGATIVE) Urine Ketones Negative (NEGATIVE) Urine Occult Blood 5+ (NEGATIVE) H Urine Nitrite Negative (NEGATIVE) Urine Bilirubin 1+ (NEGATIVE) H Urine Ictotest Positive Urine Urobilinogen 1 MG/DL (0.0-1.0) H Urine Leukocyte Esterase 1+ (NEGATIVE) H Urine RBC Tntc /HPF (0 - 0) H Urine WBC 5-10 /HPF (0 - 0) H Urine Squamous Epithelial Cells Occasional /LPF Urine Bacteria Few /HPF (NONE) Erythrocyte Sedimentation Rate 115 MM/HR (0-20) H Reticulocyte Count 1.1 % (0.0-2.0) Prothrombin Time 10.7 SEC (9.30-11.50) Prothromb Time International Ratio 1.1 (0.9-1.1) Activated Partial Thromboplast Time 34 SEC (23-33) H Iron Level 35 ug/dL (59-158) L Total Iron Binding Capacity 124 ug/dL (250-400) L Percent Iron Saturation 28 % (15-50) Unsaturated Iron Binding 89 ug/dL (112-346) L Lactate Dehydrogenase 214 U/L (135-230) Carcinoembryonic Antigen 3.9 ng/mL H Vitamin B12 Level 1160 pg/mL (211-946) H Folate Pending White Blood Count 10.8 K/UL (4.8-10.8) Red Blood Count 2.68 M/UL (4.70-6.10) L Hemoglobin 8.5 G/DL (14.2-18.0) L Hematocrit 25.6 % (42.0-52.0) L Mean Corpuscular Volume 96 FL (80-99) Mean Corpuscular Hemoglobin 31.7 PG (27.0-31.0) H Mean Corpuscular Hemoglobin Concent 33.2 G/DL (32.0-36.0) Red Cell Distribution Width 14.7 % (11.6-14.8) Platelet Count 225 K/UL (150-450) Mean Platelet Volume 7.0 FL (6.5-10.1) Neutrophils (%) (Auto) 72.7 % (45.0-75.0) Lymphocytes (%) (Auto) 10.9 % (20.0-45.0) L Monocytes (%) (Auto) 3.6 % (1.0-10.0) Eosinophils (%) (Auto) 8.3 % (0.0-3.0) H Basophils (%) (Auto) 4.5 % (0.0-2.0) H Current Medications Medications (Trade) Dose Ordered Sig/Courtney Route PRN Reason Start Time Stop Time Status Last Admin Dose Admin Acetaminophen (Tylenol) 650 mg Q4H PRN ORAL fever 11/20/16 16:45 12/20/16 16:44 11/23/16 16:06 Al Hydroxide/Mg Hydroxide (Mylanta II) 30 ml Q6H PRN ORAL dyspepsia 11/20/16 16:45 12/20/16 16:44 Atorvastatin Calcium (Lipitor) 20 mg BEDTIME ORAL 11/20/16 21:00 12/20/16 20:59 11/23/16 21:01 Dextrose STAT PRN IV Hypoglycemia 11/20/16 16:45 12/20/16 16:44 Dextrose/Sodium Chloride (D5 0.45% NS) 1,000 ml @ 75 mls/hr [id number] IV 11/20/16 17:40 12/20/16 17:39 11/24/16 00:37 Diphenhydramine HCl (Benadryl) 25 mg Q6H PRN ORAL Itching/Pruritis 11/20/16 16:45 12/20/16 16:44 Finasteride (Proscar) 5 mg DAILY ORAL 11/21/16 09:00 12/21/16 08:59 11/23/16 08:22 Lidocaine HCl (Xylocaine Jelly 2%) 1 applic EVERY 4 HOURS PRN TOPIC penile pain 11/23/16 13:00 12/23/16 12:59 11/24/16 00:29 Morphine Sulfate (Morphine Sulfate) 2 mg EVERY 4 HOURS PRN IVP severe Pain (Pain Scale 7-10) 11/20/16 16:45 11/27/16 16:44 11/21/16 03:34 Nitroglycerin (Ntg) 0.4 mg Q5M X 3 DOSES PRN SL Prn Chest Pain 11/20/16 16:45 12/20/16 16:44 Ondansetron HCl (Zofran) 4 mg Q6H PRN IVP Nausea & Vomiting 11/20/16 16:45 12/20/16 16:44 Pantoprazole (Protonix) 40 mg DAILY IVP 11/22/16 09:00 12/22/16 08:59 11/23/16 08:22 Piperacillin Sod/ Tazobactam Sod/ Sodium Chloride (Zosyn/Sodium Chloride 100ml bag) 100 ml @ 25 mls/hr Q8HR IVPB 11/20/16 22:00 11/27/16 21:59 11/24/16 05:11 Polyethylene Glycol (Miralax) 17 gm HSPRN PRN ORAL Constipation 11/20/16 16:45 12/20/16 16:44 Promethazine HCl/ Codeine (Phenergan with Codeine) 5 ml Q4H PRN ORAL For Cough 11/23/16 12:00 12/23/16 11:59 Tamsulosin HCl 0.4 mg 0.4 mg BEDTIME ORAL 11/20/16 21:00 12/20/16 20:59 11/23/16 21:00 Temazepam (Restoril) 15 mg HSPRN PRN ORAL Insomnia 11/20/16 16:45 11/27/16 16:44 11/24/16 00:32 MARÍA SARGENT Nov 24, 2016 08:35
--- NOTE | 2016-11-24 09:00 | Urology Progress Note ---
Assessment/Plan Status: stable Assessment/Plan hematuria resolved, bladder spasms better. unclear why patient still needs holcomb. urine culture pending 1. recommend valium prn bladder spasms, continuing prn lidocaine 2. consider removing holcomb unless patient has pre-existing issues that I am not aware of. Subjective Date patient seen: Nov 24, 2016 Time patient seen: 08:59 Constitutional: Denies: chills, diaphoresis, fever, malaise, no symptoms, other , weakness HEENT: Denies: blurred vision, double vision, ear discharge, ear pain, eye pain , mouth pain, mouth swelling, no symptoms, nose congestion, nose pain, other, tearing, throat pain, throat swelling Cardiovascular: Denies: chest pain, edema, irregular heart rate, lightheadedness, no symptoms, other, palpitations, syncope Respiratory: Denies: SOB at rest, SOB with excertion, cough, no symptoms, orthopnea, other, shortness of breath, sputum, stridor, wheezing Gastrointestinal/Abdominal: Denies: abdomen distended, abdominal pain, black stools, blood in stool, constipated, diarrhea, difficulty swallowing, nausea, no symptoms, other, poor appetite, poor fluid intake, rectal bleeding, tarry stools, vomiting Genitourinary: Denies: burning, discharge, flank pain, frequency, hematuria, incontinence, no symptoms, other, pain, urgency Neurologic/Psychiatric: Denies: anxiety, depressed, emotional problems, headache, no symptoms, numbness, other, paresthesia, pre-existing deficit, seizure, tingling, tremors, weakness Endocrine: Denies: excessive sweating, flushing, increased hunger, increased thirst, increased urine, intolerance to cold, intolerance to heat, no symptoms, other, unexplained weight gain, unexplained weight loss Hematologic/Lymphatic: Denies: anemia, easy bleeding, easy bruising, no symptoms, other Allergies: Coded Allergies: No Known Allergies (Unverified , 11/20/16) Subjective had some spasms yesterday but much better. urine color yellow. Objective Last 24 Hour Vital Signs Date Time Temp Pulse Resp B/P Pulse Ox O2 Delivery O2 Flow Rate FiO2 11/24/16 04:12 96.6 63 18 113/64 100 Room Air 11/24/16 00:02 97.0 73 18 123/74 100 Room Air 11/23/16 19:47 96.8 78 20 108/65 100 Room Air 11/23/16 17:00 96.3 83 20 101/69 100 Room Air 11/23/16 12:00 97.0 67 19 96/57 100 Room Air Intake and Output 11/23/16 11/24/16 19:00 07:00 Intake Total 825 ml 1250 ml Output Total 150 ml 900 ml Balance 675 ml 350 ml Intake Oral 500 ml 950 ml IV Total 325 ml 300 ml Output Urine Total 150 ml 900 ml # Voids 1 # Bowel Movements 1 Laboratory Tests 11/23/16 09:55: Urine Color Brown, Urine Appearance Cloudy, Urine pH 5, Urine Specific [place] 1.020, Urine Protein 3+H, Urine Glucose (UA) Negative, Urine Ketones Negative, Urine Occult Blood 5+H, Urine Nitrite Negative, Urine Bilirubin 1+H, Urine Ictotest Positive, Urine Urobilinogen 1H, Urine Leukocyte Esterase 1+H, Urine RBC TntcH, Urine WBC 5-10H, Urine Squamous Epithelial Cells Occasional, Urine Bacteria Few 11/23/16 11:45: Erythrocyte Sedimentation Rate 115H, Reticulocyte Count 1.1, Prothrombin Time 10.7, Prothromb Time International Ratio 1.1, Activated Partial Thromboplast Time 34H, Iron Level 35L, Total Iron Binding Capacity 124L, Percent Iron Saturation 28, Unsaturated Iron Binding 89L, Lactate Dehydrogenase 214, Carcinoembryonic Antigen 3.9H, Vitamin B12 Level 1160H, Folate [Pending] 11/24/16 04:35: White Blood Count 10.8, Red Blood Count 2.68L, Hemoglobin 8.5L, Hematocrit 25.6L , Mean Corpuscular Volume 96, Mean Corpuscular Hemoglobin 31.7H, Mean Corpuscular Hemoglobin Concent 33.2, Red Cell Distribution Width 14.7, Platelet Count 225, Mean Platelet Volume 7.0, Neutrophils (%) (Auto) 72.7, Lymphocytes (% ) (Auto) 10.9L, Monocytes (%) (Auto) 3.6, Eosinophils (%) (Auto) 8.3H, Basophils (%) (Auto) 4.5H Height (Feet): 5 Height (Inches): 5.00 Weight (Pounds): 152 General Appearance: no apparent distress Genitourinary/Rectal: other - holcomb in place yellow urine Omar Reid M.D. Nov 24, 2016 09:00
[2016-11-24] MEDS: Pantoprazole Inj IVP SCH (10:25)
--- NOTE | 2016-11-24 11:05 | General Progress Note ---
Assessment/Plan Assessment/Plan Assessment (1) Anemia (2) Biliary obstruction (3) Hypoalbuminemia (4) Malnutrition (5) Abdominal pain (6) Pancreatic cancer (7) Jaundice (8) Leukocytosis Plan monitor H&H, transfuse prn f/u path ppi fu labs Subjective Allergies: Coded Allergies: No Known Allergies (Unverified , 11/20/16) Subjective Feels OK ate OK no abdominal pain Objective Last 24 Hour Vital Signs Date Time Temp Pulse Resp B/P Pulse Ox O2 Delivery O2 Flow Rate FiO2 11/24/16 08:00 97.9 86 20 106/57 99 Room Air 11/24/16 04:12 96.6 63 18 113/64 100 Room Air 11/24/16 00:02 97.0 73 18 123/74 100 Room Air 11/23/16 19:47 96.8 78 20 108/65 100 Room Air 11/23/16 17:00 96.3 83 20 101/69 100 Room Air 11/23/16 12:00 97.0 67 19 96/57 100 Room Air Intake and Output 11/23/16 11/24/16 19:00 07:00 Intake Total 825 ml 1250 ml Output Total 150 ml 900 ml Balance 675 ml 350 ml Intake Oral 500 ml 950 ml IV Total 325 ml 300 ml Output Urine Total 150 ml 900 ml # Voids 1 # Bowel Movements 1 Laboratory Tests 11/23/16 11:45: Erythrocyte Sedimentation Rate 115H, Reticulocyte Count 1.1, Prothrombin Time 10.7, Prothromb Time International Ratio 1.1, Activated Partial Thromboplast Time 34H, Iron Level 35L, Total Iron Binding Capacity 124L, Percent Iron Saturation 28, Unsaturated Iron Binding 89L, Lactate Dehydrogenase 214, Carcinoembryonic Antigen 3.9H, Vitamin B12 Level 1160H, Folate [Pending] 11/24/16 04:35: White Blood Count 10.8, Red Blood Count 2.68L, Hemoglobin 8.5L, Hematocrit 25.6L , Mean Corpuscular Volume 96, Mean Corpuscular Hemoglobin 31.7H, Mean Corpuscular Hemoglobin Concent 33.2, Red Cell Distribution Width 14.7, Platelet Count 225, Mean Platelet Volume 7.0, Neutrophils (%) (Auto) 72.7, Lymphocytes (% ) (Auto) 10.9L, Monocytes (%) (Auto) 3.6, Eosinophils (%) (Auto) 8.3H, Basophils (%) (Auto) 4.5H Height (Feet): 5 Height (Inches): 5.00 Weight (Pounds): 152 Objective WDWN elderly man NCAT supple CTA RRR Soft ND NT no edema non focal SHANICE ALMEIDA Nov 24, 2016 11:05
[2016-11-24 12:00] VITALS: BP 110/55
[2016-11-24 16:00] VITALS: BP 113/77
--- NOTE | 2016-11-24 19:14 | Pulmonology Progress Note ---
Assessment/Plan Problems: (1) Sepsis (2) Jaundice (3) Hypoalbuminemia (4) Pancreatic cancer (5) Abdominal pain (6) Biliary obstruction (7) Dyspnea (8) Anemia Assessment/Plan Urology evaluation continue abc cxr showing LLL atelectasis/ infiltrate continue antibiotics check cultures awaiting biopsy results sputum c/s respiratory treatment Subjective Constitutional: Reports: anorexia, fatigue Neurologic: Reports: confusion, weakness Skin: Reports: rash Allergies: Coded Allergies: No Known Allergies (Unverified , 11/20/16) Objective Last 24 Hour Vital Signs Date Time Temp Pulse Resp B/P Pulse Ox O2 Delivery O2 Flow Rate FiO2 11/24/16 16:00 96.3 86 16 113/77 100 Room Air 11/24/16 14:29 98.0 11/24/16 12:00 98.0 80 20 110/55 100 Room Air 11/24/16 08:00 97.9 86 20 106/57 99 Room Air 11/24/16 04:12 96.6 63 18 113/64 100 Room Air 11/24/16 00:02 97.0 73 18 123/74 100 Room Air 11/23/16 19:47 96.8 78 20 108/65 100 Room Air Intake and Output 11/23/16 11/24/16 19:00 07:00 Intake Total 825 ml 1250 ml Output Total 150 ml 900 ml Balance 675 ml 350 ml Intake Oral 500 ml 950 ml IV Total 325 ml 300 ml Output Urine Total 150 ml 900 ml # Voids 1 # Bowel Movements 1 General Appearance: no acute distress HEENT: normocephalic, atraumatic, PERRL Respiratory/Chest: chest wall non-tender, decreased breath sounds, accessory muscle use Cardiovascular: normal peripheral pulses, normal rate, regular rhythm, regularly irregular Abdomen: hypoactive bowel sounds, distended, guarding, tender, rebound tenderness, hepatomegaly Extremities: no cyanosis Skin: rash, lesions Neurologic/Psychiatric: responsive, abnormal CN, motor weakness, depressed affect Microbiology Date/Time Source Procedure Growth Status 11/23/16 09:55 Indwelling Cath Urine Culture - Preliminary NO GROWTH Resulted Laboratory Tests 11/24/16 04:35: White Blood Count 10.8, Red Blood Count 2.68L, Hemoglobin 8.5L, Hematocrit 25.6L , Mean Corpuscular Volume 96, Mean Corpuscular Hemoglobin 31.7H, Mean Corpuscular Hemoglobin Concent 33.2, Red Cell Distribution Width 14.7, Platelet Count 225, Mean Platelet Volume 7.0, Neutrophils (%) (Auto) 72.7, Lymphocytes (% ) (Auto) 10.9L, Monocytes (%) (Auto) 3.6, Eosinophils (%) (Auto) 8.3H, Basophils (%) (Auto) 4.5H Current Medications Medications (Trade) Dose Ordered Sig/Courtney Route PRN Reason Start Time Stop Time Status Last Admin Dose Admin Acetaminophen (Tylenol) 650 mg Q4H PRN ORAL Mild Pain/Temp > 100.5 11/24/16 14:00 12/24/16 13:59 11/24/16 13:30 Al Hydroxide/Mg Hydroxide (Mylanta II) 30 ml Q6H PRN ORAL dyspepsia 11/20/16 16:45 12/20/16 16:44 Atorvastatin Calcium (Lipitor) 20 mg BEDTIME ORAL 11/20/16 21:00 12/20/16 20:59 11/23/16 21:01 Dextrose STAT PRN IV Hypoglycemia 11/20/16 16:45 12/20/16 16:44 Dextrose/Sodium Chloride (D5 0.45% NS) 1,000 ml @ 75 mls/hr [id number] IV 11/20/16 17:40 12/20/16 17:39 11/24/16 00:37 Diphenhydramine HCl (Benadryl) 25 mg Q6H PRN ORAL Itching/Pruritis 11/20/16 16:45 12/20/16 16:44 Finasteride (Proscar) 5 mg DAILY ORAL 11/21/16 09:00 12/21/16 08:59 11/24/16 10:25 Lidocaine HCl (Xylocaine Jelly 2%) 1 applic EVERY 4 HOURS PRN TOPIC penile pain 11/23/16 13:00 12/23/16 12:59 11/24/16 00:29 Morphine Sulfate (Morphine Sulfate) 2 mg EVERY 4 HOURS PRN IVP severe Pain (Pain Scale 7-10) 11/20/16 16:45 11/27/16 16:44 11/21/16 03:34 Nitroglycerin (Ntg) 0.4 mg Q5M X 3 DOSES PRN SL Prn Chest Pain 11/20/16 16:45 12/20/16 16:44 Ondansetron HCl (Zofran) 4 mg Q6H PRN IVP Nausea & Vomiting 11/20/16 16:45 12/20/16 16:44 Pantoprazole (Protonix) 40 mg DAILY IVP 11/22/16 09:00 12/22/16 08:59 11/24/16 10:25 Piperacillin Sod/ Tazobactam Sod/ Sodium Chloride (Zosyn/Sodium Chloride 100ml bag) 100 ml @ 25 mls/hr Q8HR IVPB 11/20/16 22:00 11/27/16 21:59 11/24/16 13:27 Polyethylene Glycol (Miralax) 17 gm HSPRN PRN ORAL Constipation 11/20/16 16:45 12/20/16 16:44 Promethazine HCl/ Codeine (Phenergan with Codeine) 5 ml Q4H PRN ORAL For Cough 11/23/16 12:00 12/23/16 11:59 Tamsulosin HCl 0.4 mg 0.4 mg BEDTIME ORAL 11/20/16 21:00 12/20/16 20:59 11/23/16 21:00 Temazepam (Restoril) 15 mg HSPRN PRN ORAL Insomnia 11/20/16 16:45 11/27/16 16:44 11/24/16 00:32 MILES KNUTSON Nov 24, 2016 19:14
[2016-11-24 20:00] VITALS: BP 107/69
[2016-11-24] MEDS: Tamsulosin 0.4mg cap ORAL SCH (22:32)
[2016-11-25] VITALS (7 sets, daily range): BP systolic 105–139; BP diastolic 65–87
[2016-11-25] MEDS: D5 1/2NS 1,000 ML IV SCH (03:33)
[2016-11-25 07:19] LABS: ALBUMIN/GLOBULIN RATIO 0.8 (1.0-2.7); CALCIUM 7.8 mg/dL (8.6-10.2); CREATININE 1.3 mg/dL (0.7-1.2); GLOMERULAR FILTRATION RATE 55.2 mL/min (>60); MAGNESIUM 1.7 mg/dL (1.7-2.5); PHOSPHORUS 2.5 mg/dL (2.5-4.8); POTASSIUM 3.5 mEQ/L (3.4-4.9); TOTAL PROTEIN 5.3 g/dL (6.6-8.7)
[2016-11-25 07:35] LABS: BILIRUBIN,DIRECT 1.5 mg/dL (0.1-0.3)
[2016-11-25 07:45] LABS: BASOPHILS % (AUTO) 3.7 % (0.0-2.0); EOSINOPHILS % (AUTO) 7.7 % (0.0-3.0); LYMPHOCYTES % (AUTO) 10.1 % (20.0-45.0); MEAN CORPUSCULAR HEMOGLOBIN 31.3 PG (27.0-31.0); MEAN CORPUSCULAR HGB CONC 32.6 G/DL (32.0-36.0); MEAN CORPUSCULAR VOLUME 96 FL (80-99); MEAN PLATELET VOLUME 6.5 FL (6.5-10.1); MONOCYTES % (AUTO) 3.8 % (1.0-10.0); NEUTROPHILS % (AUTO) 74.8 % (45.0-75.0); PLATELET COUNT 249 K/UL (150-450); RED CELL DISTRIBUTION WIDTH 15.1 % (11.6-14.8); WHITE BLOOD COUNT 10.5 K/UL (4.8-10.8)
[2016-11-25] MEDS: Pantoprazole Inj IVP SCH (09:06)
[2016-11-25] MEDS: Lidocaine HCl 2% Jelly 5ml Tube TOPIC PRN (09:06)
--- NOTE | 2016-11-25 09:19 | Cardiology Report ---
APPROVED REPORT EXAM: Two-dimensional and M-mode echocardiogram with Doppler and color Doppler. INDICATION Left Ventricular Function M-Mode DIMENSIONS IVSd1.6 (0.7-1.1cm)Left Atrium (MM)4.5 (1.6-4.0cm) LVDd4.1 (3.5-5.6cm)Aortic Root3.3 (2.0-3.7cm) PWd.8 (0.7-1.1cm)Aortic Cusp Exc.2.2 (1.5-2.0cm) LVDs2.6 (2.5-4.0cm) PWs1.3 cm Normal left ventricular chamber size, systolic function and wall motion. Left ventricular ejection fraction estimated to be 55-60 %. Mild left ventricular hypertrophy. Possible plural effusion. All other cardiac chamber sizes are within normal limits. Mild focal aortic valve sclerosis with adequate cusp excursion. Mildly thickened mitral valve leaflets with normal excursion. Mild mitral annulus and aortic root calcification. Pulmonic valve not well visualized. Normal tricuspid valve structure. IVC not obtainable. A color flow and spectral Doppler study was performed and revealed: No aortic regurgitation. Mild mitral regurgitation. Mitral inflow indicate normal left ventricular diastolic function. Trace tricuspid regurgitation. Tricuspid systolic velocities suggests peak right ventricular systolic pressure of 4mmHg.
--- NOTE | 2016-11-25 10:42 | GI Progress Note ---
Assessment/Plan Problems: (1) Biliary obstruction ICD Codes: K83.1 - Obstruction of bile duct SNOMED: 311766716 (2) Abdominal pain ICD Codes: R10.9 - Unspecified abdominal pain SNOMED: 09997030 Qualifiers: Qualified Codes: R10.84 - Generalized abdominal pain (3) Pancreatic cancer ICD Codes: C25.9 - Malignant neoplasm of pancreas, unspecified SNOMED: 040970044 Qualifiers: Qualified Codes: C25.9 - Malignant neoplasm of pancreas, unspecified (4) Malnutrition ICD Codes: E46 - Unspecified protein-calorie malnutrition SNOMED: 7050456 (5) Anemia ICD Codes: D64.9 - Anemia, unspecified SNOMED: 891947372 (6) Jaundice ICD Codes: R17 - Unspecified jaundice SNOMED: 37391970 (7) Hypoalbuminemia ICD Codes: E88.09 - Other disorders of plasma-protein metabolism, not elsewhere classified SNOMED: 648891879 Status: stable, unchanged Status Narrative Discussed with Dr. York. Assessment/Plan monitor H&H, transfuse prn f/u path ppi fu labs Subjective Gastrointestinal/Abdominal: Reports: no symptoms Subjective BLE 2+ edema Objective Last 24 Hour Vital Signs Date Time Temp Pulse Resp B/P Pulse Ox O2 Delivery O2 Flow Rate FiO2 11/25/16 08:00 97.9 67 19 111/65 100 Room Air 11/25/16 04:00 97.7 64 18 119/68 100 Room Air 11/25/16 01:52 97.8 70 18 110/70 100 Room Air 11/25/16 00:00 97.8 70 18 110/70 100 11/24/16 20:00 97.9 68 20 107/69 100 Room Air 11/24/16 16:00 96.3 86 16 113/77 100 Room Air 11/24/16 14:29 98.0 11/24/16 12:00 98.0 80 20 110/55 100 Room Air Intake and Output 11/24/16 11/25/16 19:00 07:00 Intake Total 960 ml 1050 ml Output Total 900 ml Balance 960 ml 150 ml Intake Oral 360 ml 600 ml IV Total 600 ml 450 ml Output Urine Total 900 ml # Voids 1 # Bowel Movements 1 1 Laboratory Tests Test 11/25/16 04:55 White Blood Count 10.5 K/UL (4.8-10.8) Red Blood Count 2.70 M/UL (4.70-6.10) L Hemoglobin 8.5 G/DL (14.2-18.0) L Hematocrit 26.0 % (42.0-52.0) L Mean Corpuscular Volume 96 FL (80-99) Mean Corpuscular Hemoglobin 31.3 PG (27.0-31.0) H Mean Corpuscular Hemoglobin Concent 32.6 G/DL (32.0-36.0) Red Cell Distribution Width 15.1 % (11.6-14.8) H Platelet Count 249 K/UL (150-450) Mean Platelet Volume 6.5 FL (6.5-10.1) Neutrophils (%) (Auto) 74.8 % (45.0-75.0) Lymphocytes (%) (Auto) 10.1 % (20.0-45.0) L Monocytes (%) (Auto) 3.8 % (1.0-10.0) Eosinophils (%) (Auto) 7.7 % (0.0-3.0) H Basophils (%) (Auto) 3.7 % (0.0-2.0) H Prothrombin Time 10.0 SEC (9.30-11.50) Prothromb Time International Ratio 1.0 (0.9-1.1) Activated Partial Thromboplast Time 30 SEC (23-33) Sodium Level 139 mEQ/L (135-145) Potassium Level 3.5 mEQ/L (3.4-4.9) Chloride Level 100 mEQ/L (98-107) Carbon Dioxide Level 23 mEQ/L (20-30) Anion Gap 16 (5-15) H Blood Urea Nitrogen 17 mg/dL (7-23) Creatinine 1.3 mg/dL (0.7-1.2) H Estimat Glomerular Filtration Rate 55.2 mL/min (>60) Glucose Level 92 mg/dL (74-106) Calcium Level 7.8 mg/dL (8.6-10.2) L Phosphorus Level 2.5 mg/dL (2.5-4.8) Magnesium Level 1.7 mg/dL (1.7-2.5) Total Bilirubin 3.0 mg/dL (0.0-1.2) H Direct Bilirubin 1.5 mg/dL (0.1-0.3) H Aspartate Amino Transf (AST/SGOT) 41 U/L (5-40) H Alanine Aminotransferase (ALT/SGPT) 43 U/L (3-41) H Alkaline Phosphatase 234 U/L (40-129) H Total Protein 5.3 g/dL (6.6-8.7) L Albumin 2.5 g/dL (3.5-5.2) L Globulin 2.8 g/dL Albumin/Globulin Ratio 0.8 (1.0-2.7) L Height (Feet): 5 Height (Inches): 5.00 Weight (Pounds): 152 General Appearance: no apparent distress, alert Cardiovascular: normal rate Respiratory/Chest: normal breath sounds, no respiratory distress Abdominal Exam: normal bowel sounds, non tender, soft Extremities: normal range of motion Oxana Michaels N.P. Nov 25, 2016 10:42
--- NOTE | 2016-11-25 16:17 | Pulmonology Progress Note ---
Assessment/Plan Problems: (1) Sepsis (2) Jaundice (3) Hypoalbuminemia (4) Pancreatic cancer (5) Abdominal pain (6) Biliary obstruction (7) Dyspnea (8) Anemia Assessment/Plan Urology evaluation continue abc cxr showing LLL atelectasis/ infiltrate continue antibiotics check cultures awaiting biopsy results sputum c/s respiratory treatment Subjective ROS Limited/Unobtainable: No Constitutional: Reports: anorexia, fatigue Genitourinary: Reports: dysuria, frequency, hematuria, urgency Neurologic: Reports: weakness Allergies: Coded Allergies: No Known Allergies (Unverified , 11/20/16) Objective Last 24 Hour Vital Signs Date Time Temp Pulse Resp B/P Pulse Ox O2 Delivery O2 Flow Rate FiO2 11/25/16 16:12 97.7 89 21 120/74 99 Room Air 11/25/16 12:00 97.7 82 19 105/74 99 Room Air 11/25/16 08:00 97.9 67 19 111/65 100 Room Air 11/25/16 04:00 97.7 64 18 119/68 100 Room Air 11/25/16 01:52 97.8 70 18 110/70 100 Room Air 11/25/16 00:00 97.8 70 18 110/70 100 11/24/16 20:00 97.9 68 20 107/69 100 Room Air Intake and Output 11/24/16 11/25/16 19:00 07:00 Intake Total 960 ml 1125 ml Output Total 900 ml Balance 960 ml 225 ml Intake Oral 360 ml 600 ml IV Total 600 ml 525 ml Output Urine Total 900 ml # Voids 1 # Bowel Movements 1 1 General Appearance: no acute distress HEENT: normocephalic, atraumatic, PERRL Respiratory/Chest: chest wall non-tender, no respiratory distress Cardiovascular: normal peripheral pulses, normal rate, regular rhythm, no JVD Abdomen: normal bowel sounds, soft, non tender, no organomegaly, non distended Genitourinary: other - scrotal edema and inflammation Extremities: no clubbing Skin: rash, lesions 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, no motor/sensory deficits Microbiology Date/Time Source Procedure Growth Status 11/23/16 09:55 Indwelling Cath Urine Culture - Preliminary NO GROWTH AFTER 24 HOURS Resulted Laboratory Tests 11/25/16 04:55: White Blood Count 10.5, Red Blood Count 2.70L, Hemoglobin 8.5L, Hematocrit 26.0L , Mean Corpuscular Volume 96, Mean Corpuscular Hemoglobin 31.3H, Mean Corpuscular Hemoglobin Concent 32.6, Red Cell Distribution Width 15.1H, Platelet Count 249, Mean Platelet Volume 6.5, Neutrophils (%) (Auto) 74.8, Lymphocytes (%) (Auto) 10.1L, Monocytes (%) (Auto) 3.8, Eosinophils (%) (Auto) 7.7H, Basophils (%) (Auto) 3.7H, Prothrombin Time 10.0, Prothromb Time International Ratio 1.0, Activated Partial Thromboplast Time 30, Sodium Level 139, Potassium Level 3.5, Chloride Level 100, Carbon Dioxide Level 23, Anion Gap 16H, Blood Urea Nitrogen 17, Creatinine 1.3H, Estimat Glomerular Filtration Rate 55.2, Glucose Level 92, Calcium Level 7.8L, Phosphorus Level 2.5, Magnesium Level 1.7, Total Bilirubin 3.0H, Direct Bilirubin 1.5H, Aspartate Amino Transf (AST/SGOT) 41H, Alanine Aminotransferase (ALT/SGPT) 43H, Alkaline Phosphatase 234H, Total Protein 5.3L, Albumin 2.5L, Globulin 2.8, Albumin/ Globulin Ratio 0.8L Current Medications Medications (Trade) Dose Ordered Sig/Courtney Route PRN Reason Start Time Stop Time Status Last Admin Dose Admin Acetaminophen (Tylenol) 650 mg Q4H PRN ORAL Mild Pain/Temp > 100.5 11/24/16 14:00 12/24/16 13:59 11/24/16 13:30 Al Hydroxide/Mg Hydroxide (Mylanta II) 30 ml Q6H PRN ORAL dyspepsia 11/20/16 16:45 12/20/16 16:44 Atorvastatin Calcium (Lipitor) 20 mg BEDTIME ORAL 11/20/16 21:00 12/20/16 20:59 11/24/16 22:32 Dextrose STAT PRN IV Hypoglycemia 11/20/16 16:45 12/20/16 16:44 Dextrose/Sodium Chloride (D5 0.45% NS) 1,000 ml @ 75 mls/hr [id number] IV 11/20/16 17:40 12/20/16 17:39 11/25/16 03:33 Diphenhydramine HCl (Benadryl) 25 mg Q6H PRN ORAL Itching/Pruritis 11/20/16 16:45 12/20/16 16:44 Finasteride (Proscar) 5 mg DAILY ORAL 11/21/16 09:00 12/21/16 08:59 11/25/16 09:06 Lidocaine HCl (Xylocaine Jelly 2%) 1 applic EVERY 4 HOURS PRN TOPIC penile pain 11/23/16 13:00 12/23/16 12:59 11/25/16 09:06 Morphine Sulfate (Morphine Sulfate) 2 mg EVERY 4 HOURS PRN IVP severe Pain (Pain Scale 7-10) 11/20/16 16:45 11/27/16 16:44 11/21/16 03:34 Nitroglycerin (Ntg) 0.4 mg Q5M X 3 DOSES PRN SL Prn Chest Pain 11/20/16 16:45 12/20/16 16:44 Ondansetron HCl (Zofran) 4 mg Q6H PRN IVP Nausea & Vomiting 11/20/16 16:45 12/20/16 16:44 Pantoprazole (Protonix) 40 mg DAILY IVP 11/22/16 09:00 12/22/16 08:59 11/25/16 09:06 Piperacillin Sod/ Tazobactam Sod/ Sodium Chloride (Zosyn/Sodium Chloride 100ml bag) 100 ml @ 25 mls/hr Q8HR IVPB 11/20/16 22:00 11/27/16 21:59 11/25/16 13:24 Polyethylene Glycol (Miralax) 17 gm HSPRN PRN ORAL Constipation 11/20/16 16:45 12/20/16 16:44 Promethazine HCl/ Codeine (Phenergan with Codeine) 5 ml Q4H PRN ORAL For Cough 11/23/16 12:00 12/23/16 11:59 Tamsulosin HCl 0.4 mg 0.4 mg BEDTIME ORAL 11/20/16 21:00 12/20/16 20:59 11/24/16 22:32 Temazepam (Restoril) 15 mg HSPRN PRN ORAL Insomnia 11/20/16 16:45 11/27/16 16:44 11/25/16 01:05 MILES KNUTSON Nov 25, 2016 16:17
--- NOTE | 2016-11-25 17:39 | Infectious Diseases Prog Note ---
Assessment/Plan Assessment/Plan ASSESSMENT: 66 y/o male with: // Probable cholangitis / obstructive jaundice - SP biliary stent OSH with pneumobilia // Urinary retention, hematuria SP holcomb r/o UTI - UCx NGTD, urology following // Leukocytosis - resolved, afebrile ( pancreatitis, CA contributing ) // Probable metastatic pancreatic CA / peritoneal carcinomatosis - SP EUS, FNA x3 - path pending // Acute pancreatitis // Elevated LFTs // L>R pleural effusions // VRE colonized // NKDA // Full Code PLAN: - continue zosyn d# . Ok to complete course with PO cipro + flagyl at discharge - f/u UCx - f/u path - monitor CBC, temperatures - monitor CMP Subjective Allergies: Coded Allergies: No Known Allergies (Unverified , 11/20/16) Subjective remains afebrile. no new complaint path pending Objective Vital Signs Last 24 Hour Vital Signs Date Time Temp Pulse Resp B/P Pulse Ox O2 Delivery O2 Flow Rate FiO2 11/25/16 16:12 97.7 89 21 120/74 99 Room Air 11/25/16 12:00 97.7 82 19 105/74 99 Room Air 11/25/16 08:00 97.9 67 19 111/65 100 Room Air 11/25/16 04:00 97.7 64 18 119/68 100 Room Air 11/25/16 01:52 97.8 70 18 110/70 100 Room Air 11/25/16 00:00 97.8 70 18 110/70 100 11/24/16 20:00 97.9 68 20 107/69 100 Room Air Height (Feet): 5 Height (Inches): 5.00 Weight (Pounds): 152 General Appearance: no acute distress Respiratory/Chest: no respiratory distress Cardiovascular: normal rate, regular rhythm Abdomen: normal bowel sounds, soft, non tender, non distended Microbiology Date/Time Source Procedure Growth Status 11/23/16 09:55 Indwelling Cath Urine Culture - Preliminary NO GROWTH AFTER 24 HOURS Resulted Laboratory Tests Test 11/25/16 04:55 White Blood Count 10.5 K/UL (4.8-10.8) Red Blood Count 2.70 M/UL (4.70-6.10) L Hemoglobin 8.5 G/DL (14.2-18.0) L Hematocrit 26.0 % (42.0-52.0) L Mean Corpuscular Volume 96 FL (80-99) Mean Corpuscular Hemoglobin 31.3 PG (27.0-31.0) H Mean Corpuscular Hemoglobin Concent 32.6 G/DL (32.0-36.0) Red Cell Distribution Width 15.1 % (11.6-14.8) H Platelet Count 249 K/UL (150-450) Mean Platelet Volume 6.5 FL (6.5-10.1) Neutrophils (%) (Auto) 74.8 % (45.0-75.0) Lymphocytes (%) (Auto) 10.1 % (20.0-45.0) L Monocytes (%) (Auto) 3.8 % (1.0-10.0) Eosinophils (%) (Auto) 7.7 % (0.0-3.0) H Basophils (%) (Auto) 3.7 % (0.0-2.0) H Prothrombin Time 10.0 SEC (9.30-11.50) Prothromb Time International Ratio 1.0 (0.9-1.1) Activated Partial Thromboplast Time 30 SEC (23-33) Sodium Level 139 mEQ/L (135-145) Potassium Level 3.5 mEQ/L (3.4-4.9) Chloride Level 100 mEQ/L (98-107) Carbon Dioxide Level 23 mEQ/L (20-30) Anion Gap 16 (5-15) H Blood Urea Nitrogen 17 mg/dL (7-23) Creatinine 1.3 mg/dL (0.7-1.2) H Estimat Glomerular Filtration Rate 55.2 mL/min (>60) Glucose Level 92 mg/dL (74-106) Calcium Level 7.8 mg/dL (8.6-10.2) L Phosphorus Level 2.5 mg/dL (2.5-4.8) Magnesium Level 1.7 mg/dL (1.7-2.5) Total Bilirubin 3.0 mg/dL (0.0-1.2) H Direct Bilirubin 1.5 mg/dL (0.1-0.3) H Aspartate Amino Transf (AST/SGOT) 41 U/L (5-40) H Alanine Aminotransferase (ALT/SGPT) 43 U/L (3-41) H Alkaline Phosphatase 234 U/L (40-129) H Total Protein 5.3 g/dL (6.6-8.7) L Albumin 2.5 g/dL (3.5-5.2) L Globulin 2.8 g/dL Albumin/Globulin Ratio 0.8 (1.0-2.7) L Current Medications Medications (Trade) Dose Ordered Sig/Courtney Route PRN Reason Start Time Stop Time Status Last Admin Dose Admin Acetaminophen (Tylenol) 650 mg Q4H PRN ORAL Mild Pain/Temp > 100.5 11/24/16 14:00 12/24/16 13:59 11/24/16 13:30 Al Hydroxide/Mg Hydroxide (Mylanta II) 30 ml Q6H PRN ORAL dyspepsia 11/20/16 16:45 12/20/16 16:44 Atorvastatin Calcium (Lipitor) 20 mg BEDTIME ORAL 11/20/16 21:00 12/20/16 20:59 11/24/16 22:32 Dextrose STAT PRN IV Hypoglycemia 11/20/16 16:45 12/20/16 16:44 Diphenhydramine HCl (Benadryl) 25 mg Q6H PRN ORAL Itching/Pruritis 11/20/16 16:45 12/20/16 16:44 Finasteride (Proscar) 5 mg DAILY ORAL 11/21/16 09:00 12/21/16 08:59 11/25/16 09:06 Lidocaine HCl (Xylocaine Jelly 2%) 1 applic EVERY 4 HOURS PRN TOPIC penile pain 11/23/16 13:00 12/23/16 12:59 11/25/16 09:06 Morphine Sulfate (Morphine Sulfate) 2 mg EVERY 4 HOURS PRN IVP severe Pain (Pain Scale 7-10) 11/20/16 16:45 11/27/16 16:44 11/21/16 03:34 Nitroglycerin (Ntg) 0.4 mg Q5M X 3 DOSES PRN SL Prn Chest Pain 11/20/16 16:45 12/20/16 16:44 Ondansetron HCl (Zofran) 4 mg Q6H PRN IVP Nausea & Vomiting 11/20/16 16:45 12/20/16 16:44 Pantoprazole (Protonix) 40 mg DAILY IVP 11/22/16 09:00 12/22/16 08:59 11/25/16 09:06 Piperacillin Sod/ Tazobactam Sod/ Sodium Chloride (Zosyn/Sodium Chloride 100ml bag) 100 ml @ 25 mls/hr Q8HR IVPB 11/20/16 22:00 11/27/16 21:59 11/25/16 13:24 Polyethylene Glycol (Miralax) 17 gm HSPRN PRN ORAL Constipation 11/20/16 16:45 12/20/16 16:44 Promethazine HCl/ Codeine (Phenergan with Codeine) 5 ml Q4H PRN ORAL For Cough 11/23/16 12:00 12/23/16 11:59 Tamsulosin HCl (Flomax) 0.4 mg BEDTIME ORAL 11/20/16 21:00 12/20/16 20:59 11/24/16 22:32 Temazepam (Restoril) 15 mg HSPRN PRN ORAL Insomnia 11/20/16 16:45 11/27/16 16:44 11/25/16 01:05 MARÍA SARGENT Nov 25, 2016 17:39
[2016-11-25] MEDS: Tamsulosin 0.4mg cap ORAL SCH (22:34)
[2016-11-26] VITALS: BP 136/76
[2016-11-26 04:00] VITALS: BP 105/59
[2016-11-26 07:25] LABS: BASOPHILS % (AUTO) 3.4 % (0.0-2.0); EOSINOPHILS % (AUTO) 6.6 % (0.0-3.0); LYMPHOCYTES % (AUTO) 8.4 % (20.0-45.0); MEAN CORPUSCULAR HEMOGLOBIN 31.4 PG (27.0-31.0); MEAN CORPUSCULAR VOLUME 95 FL (80-99); MEAN PLATELET VOLUME 6.6 FL (6.5-10.1); MONOCYTES % (AUTO) 6.1 % (1.0-10.0); NEUTROPHILS % (AUTO) 75.5 % (45.0-75.0); PLATELET COUNT 256 K/UL (150-450); RED BLOOD COUNT 2.67 M/UL (4.70-6.10); RED CELL DISTRIBUTION WIDTH 15.2 % (11.6-14.8); WHITE BLOOD COUNT 11.6 K/UL (4.8-10.8)
[2016-11-26 07:39] LABS: ALANINE AMINOTRANSFERASE 39 U/L (3-41); ALBUMIN/GLOBULIN RATIO 0.8 (1.0-2.7); ANION GAP 15 (5-15); ASPARTATE AMINO TRANSFERASE 40 U/L (5-40); CARBON DIOXIDE 23 mEQ/L (20-30); CHLORIDE 101 mEQ/L (98-107); CREATININE 1.2 mg/dL (0.7-1.2); GLOMERULAR FILTRATION RATE > 60 mL/min (>60); HEMOLYSIS 1; MAGNESIUM 1.7 mg/dL (1.7-2.5); PHOSPHORUS 2.5 mg/dL (2.5-4.8); POTASSIUM 3.3 mEQ/L (3.4-4.9); SODIUM 139 mEQ/L (135-145); TOTAL PROTEIN 5.4 g/dL (6.6-8.7)
[2016-11-26 07:56] LABS: PROTHROMBIN TIME 9.9 SEC (9.30-11.50)
[2016-11-26 07:57] LABS: BILIRUBIN,DIRECT 1.4 mg/dL (0.1-0.3)
[2016-11-26 08:18] VITALS: BP 112/69
[2016-11-26] MEDS: Pantoprazole Inj IVP SCH (09:23)
--- NOTE | 2016-11-26 11:08 | GI Progress Note ---
Assessment/Plan Problems: (1) Biliary obstruction ICD Codes: K83.1 - Obstruction of bile duct SNOMED: 888656355 (2) Abdominal pain ICD Codes: R10.9 - Unspecified abdominal pain SNOMED: 13054272 Qualifiers: Qualified Codes: R10.84 - Generalized abdominal pain (3) Pancreatic cancer ICD Codes: C25.9 - Malignant neoplasm of pancreas, unspecified SNOMED: 456712986 Qualifiers: Qualified Codes: C25.9 - Malignant neoplasm of pancreas, unspecified (4) Malnutrition ICD Codes: E46 - Unspecified protein-calorie malnutrition SNOMED: 8118140 (5) Anemia ICD Codes: D64.9 - Anemia, unspecified SNOMED: 536943506 (6) Jaundice ICD Codes: R17 - Unspecified jaundice SNOMED: 98189135 (7) Hypoalbuminemia ICD Codes: E88.09 - Other disorders of plasma-protein metabolism, not elsewhere classified SNOMED: 410141995 Status: stable Status Narrative Discussed with Dr. York. Assessment/Plan monitor H&H, transfuse prn f/u path ppi fu labs Subjective Gastrointestinal/Abdominal: Reports: no symptoms Subjective BLE 2+ edema Objective Last 24 Hour Vital Signs Date Time Temp Pulse Resp B/P Pulse Ox O2 Delivery O2 Flow Rate FiO2 11/26/16 08:18 98.0 99 20 112/69 100 Room Air 11/26/16 04:00 97.9 74 18 105/59 99 Room Air 11/26/16 00:00 98.1 75 18 136/76 100 Room Air 11/25/16 20:12 98.6 75 20 139/87 100 Room Air 11/25/16 16:12 97.7 89 21 120/74 99 Room Air 11/25/16 12:00 97.7 82 19 105/74 99 Room Air Intake and Output 11/25/16 11/26/16 19:00 07:00 Intake Total 790 ml 625 ml Output Total 400 ml 870 ml Balance 390 ml -245 ml Intake Oral 240 ml 600 ml IV Total 550 ml 25 ml Output Urine Total 400 ml 870 ml # Voids 1 # Bowel Movements 1 Laboratory Tests Test 11/26/16 06:00 White Blood Count 11.6 K/UL (4.8-10.8) H Red Blood Count 2.67 M/UL (4.70-6.10) L Hemoglobin 8.4 G/DL (14.2-18.0) L Hematocrit 25.4 % (42.0-52.0) L Mean Corpuscular Volume 95 FL (80-99) Mean Corpuscular Hemoglobin 31.4 PG (27.0-31.0) H Mean Corpuscular Hemoglobin Concent 33.0 G/DL (32.0-36.0) Red Cell Distribution Width 15.2 % (11.6-14.8) H Platelet Count 256 K/UL (150-450) Mean Platelet Volume 6.6 FL (6.5-10.1) Neutrophils (%) (Auto) 75.5 % (45.0-75.0) H Lymphocytes (%) (Auto) 8.4 % (20.0-45.0) L Monocytes (%) (Auto) 6.1 % (1.0-10.0) Eosinophils (%) (Auto) 6.6 % (0.0-3.0) H Basophils (%) (Auto) 3.4 % (0.0-2.0) H Prothrombin Time 9.9 SEC (9.30-11.50) Prothromb Time International Ratio 1.0 (0.9-1.1) Activated Partial Thromboplast Time 30 SEC (23-33) Sodium Level 139 mEQ/L (135-145) Potassium Level 3.3 mEQ/L (3.4-4.9) L Chloride Level 101 mEQ/L (98-107) Carbon Dioxide Level 23 mEQ/L (20-30) Anion Gap 15 (5-15) Blood Urea Nitrogen 16 mg/dL (7-23) Creatinine 1.2 mg/dL (0.7-1.2) Estimat Glomerular Filtration Rate > 60 mL/min (>60) Glucose Level 89 mg/dL (74-106) Calcium Level 8.0 mg/dL (8.6-10.2) L Phosphorus Level 2.5 mg/dL (2.5-4.8) Magnesium Level 1.7 mg/dL (1.7-2.5) Total Bilirubin 2.9 mg/dL (0.0-1.2) H Direct Bilirubin 1.4 mg/dL (0.1-0.3) H Aspartate Amino Transf (AST/SGOT) 40 U/L (5-40) Alanine Aminotransferase (ALT/SGPT) 39 U/L (3-41) Alkaline Phosphatase 272 U/L (40-129) H Total Protein 5.4 g/dL (6.6-8.7) L Albumin 2.4 g/dL (3.5-5.2) L Globulin 3.0 g/dL Albumin/Globulin Ratio 0.8 (1.0-2.7) L Height (Feet): 5 Height (Inches): 5.00 Weight (Pounds): 152 General Appearance: no apparent distress, alert, other - jaundice Cardiovascular: normal rate Respiratory/Chest: normal breath sounds, no respiratory distress Abdominal Exam: normal bowel sounds, non tender, soft Extremities: swelling Oxana Michaels N.P. Nov 26, 2016 11:08
[2016-11-26 12:00] VITALS: BP 121/74
--- NOTE | 2016-11-26 13:48 | Diagnostic Imaging Report ---
Indication: Dyspnea Comparison: 11/23/16 A single view chest radiograph was obtained. Findings: There is infiltrate versus atelectasis at the left lung base. Lung lines are low. Bones are osteopenic. Impression: Infiltrate versus atelectasis left lung base. No change.
[2016-11-26] MEDS: Piperacillin/Tazobactam 3.375 GM in NS 110 ML IVPB SCH ×2 (14:29→21:22)
--- NOTE | 2016-11-26 14:48 | Infectious Diseases Prog Note ---
Assessment/Plan Assessment/Plan ASSESSMENT: 66 y/o male with: // Probable cholangitis / obstructive jaundice - SP biliary stent OSH with pneumobilia // Urinary retention, hematuria SP holcomb r/o UTI - UCx(-), urology following // Leukocytosis - recurrent, mild, afebrile ( pancreatitis, CA contributing ) // Probable metastatic pancreatic CA / peritoneal carcinomatosis - SP EUS, FNA x3 - path pending // Acute pancreatitis // Elevated LFTs // L>R pleural effusions // VRE colonized // NKDA // Full Code PLAN: - continue zosyn d# . Ok to complete course with PO cipro + flagyl at discharge - f/u path - monitor CBC, temperatures - monitor CMP - DC planning Subjective Allergies: Coded Allergies: No Known Allergies (Unverified , 11/20/16) Subjective remains afebrile. no new complaint path pending DC planning ongoing Objective Vital Signs Last 24 Hour Vital Signs Date Time Temp Pulse Resp B/P Pulse Ox O2 Delivery O2 Flow Rate FiO2 11/26/16 12:00 97.6 84 20 121/74 100 Room Air 11/26/16 08:18 98.0 99 20 112/69 100 Room Air 11/26/16 04:00 97.9 74 18 105/59 99 Room Air 11/26/16 00:00 98.1 75 18 136/76 100 Room Air 11/25/16 20:12 98.6 75 20 139/87 100 Room Air 11/25/16 16:12 97.7 89 21 120/74 99 Room Air Height (Feet): 5 Height (Inches): 5.00 Weight (Pounds): 152 General Appearance: no acute distress Respiratory/Chest: no respiratory distress Cardiovascular: normal rate, regular rhythm Abdomen: normal bowel sounds, soft, non tender, distended Laboratory Tests Test 11/26/16 06:00 White Blood Count 11.6 K/UL (4.8-10.8) H Red Blood Count 2.67 M/UL (4.70-6.10) L Hemoglobin 8.4 G/DL (14.2-18.0) L Hematocrit 25.4 % (42.0-52.0) L Mean Corpuscular Volume 95 FL (80-99) Mean Corpuscular Hemoglobin 31.4 PG (27.0-31.0) H Mean Corpuscular Hemoglobin Concent 33.0 G/DL (32.0-36.0) Red Cell Distribution Width 15.2 % (11.6-14.8) H Platelet Count 256 K/UL (150-450) Mean Platelet Volume 6.6 FL (6.5-10.1) Neutrophils (%) (Auto) 75.5 % (45.0-75.0) H Lymphocytes (%) (Auto) 8.4 % (20.0-45.0) L Monocytes (%) (Auto) 6.1 % (1.0-10.0) Eosinophils (%) (Auto) 6.6 % (0.0-3.0) H Basophils (%) (Auto) 3.4 % (0.0-2.0) H Prothrombin Time 9.9 SEC (9.30-11.50) Prothromb Time International Ratio 1.0 (0.9-1.1) Activated Partial Thromboplast Time 30 SEC (23-33) Sodium Level 139 mEQ/L (135-145) Potassium Level 3.3 mEQ/L (3.4-4.9) L Chloride Level 101 mEQ/L (98-107) Carbon Dioxide Level 23 mEQ/L (20-30) Anion Gap 15 (5-15) Blood Urea Nitrogen 16 mg/dL (7-23) Creatinine 1.2 mg/dL (0.7-1.2) Estimat Glomerular Filtration Rate > 60 mL/min (>60) Glucose Level 89 mg/dL (74-106) Calcium Level 8.0 mg/dL (8.6-10.2) L Phosphorus Level 2.5 mg/dL (2.5-4.8) Magnesium Level 1.7 mg/dL (1.7-2.5) Total Bilirubin 2.9 mg/dL (0.0-1.2) H Direct Bilirubin 1.4 mg/dL (0.1-0.3) H Aspartate Amino Transf (AST/SGOT) 40 U/L (5-40) Alanine Aminotransferase (ALT/SGPT) 39 U/L (3-41) Alkaline Phosphatase 272 U/L (40-129) H Total Protein 5.4 g/dL (6.6-8.7) L Albumin 2.4 g/dL (3.5-5.2) L Globulin 3.0 g/dL Albumin/Globulin Ratio 0.8 (1.0-2.7) L Current Medications Medications (Trade) Dose Ordered Sig/Courtney Route PRN Reason Start Time Stop Time Status Last Admin Dose Admin Acetaminophen 650 mg 650 mg Q4H PRN ORAL Mild Pain/Temp > 100.5 11/24/16 14:00 12/24/16 13:59 11/24/16 13:30 Al Hydroxide/Mg Hydroxide (Mylanta II) 30 ml Q6H PRN ORAL dyspepsia 11/20/16 16:45 12/20/16 16:44 Atorvastatin Calcium (Lipitor) 20 mg BEDTIME ORAL 11/20/16 21:00 12/20/16 20:59 11/25/16 22:34 Dextrose (Dextrose 50%) STAT PRN IV Hypoglycemia 11/20/16 16:45 12/20/16 16:44 Diphenhydramine HCl (Benadryl) 25 mg Q6H PRN ORAL Itching/Pruritis 11/20/16 16:45 12/20/16 16:44 Finasteride (Proscar) 5 mg DAILY ORAL 11/21/16 09:00 12/21/16 08:59 11/26/16 09:23 Lidocaine HCl (Xylocaine Jelly 2%) 1 applic EVERY 4 HOURS PRN TOPIC penile pain 11/23/16 13:00 12/23/16 12:59 11/25/16 09:06 Morphine Sulfate (Morphine Sulfate) 2 mg EVERY 4 HOURS PRN IVP severe Pain (Pain Scale 7-10) 11/20/16 16:45 11/27/16 16:44 11/21/16 03:34 Nitroglycerin (Ntg) 0.4 mg Q5M X 3 DOSES PRN SL Prn Chest Pain 11/20/16 16:45 12/20/16 16:44 Ondansetron HCl (Zofran) 4 mg Q6H PRN IVP Nausea & Vomiting 11/20/16 16:45 12/20/16 16:44 Pantoprazole (Protonix) 40 mg DAILY IVP 11/22/16 09:00 12/22/16 08:59 11/26/16 09:23 Piperacillin Sod/ Tazobactam Sod/ Sodium Chloride (Zosyn/Sodium Chloride) 110 ml @ 27.5 mls/hr EVERY 8 HOURS IVPB 11/26/16 14:00 12/03/16 13:59 11/26/16 14:29 Polyethylene Glycol (Miralax) 17 gm HSPRN PRN ORAL Constipation 11/20/16 16:45 12/20/16 16:44 Promethazine HCl/ Codeine (Phenergan with Codeine) 5 ml Q4H PRN ORAL For Cough 11/23/16 12:00 12/23/16 11:59 Tamsulosin HCl (Flomax) 0.4 mg BEDTIME ORAL 11/20/16 21:00 12/20/16 20:59 11/25/16 22:34 Temazepam (Restoril) 15 mg HSPRN PRN ORAL Insomnia 11/20/16 16:45 11/27/16 16:44 11/26/16 01:13 MARÍA SARGENT Nov 26, 2016 14:48
[2016-11-26 15:59] VITALS: BP 137/80
--- NOTE | 2016-11-26 17:13 | Pulmonology Progress Note ---
Assessment/Plan Problems: (1) Sepsis (2) Jaundice (3) Hypoalbuminemia (4) Pancreatic cancer (5) Abdominal pain (6) Biliary obstruction (7) Dyspnea (8) Anemia Assessment/Plan Urology evaluation continue abc cxr showing LLL atelectasis/ infiltrate continue antibiotics check cultures awaiting biopsy results sputum c/s respiratory treatment Subjective ROS Limited/Unobtainable: Yes Constitutional: Reports: anorexia, chills, fatigue Gastrointestinal/Abdominal: Reports: bloating, constipation, nausea, vomiting Genitourinary: Reports: dysuria, frequency, nocturia, urgency Neurologic: Reports: confusion, weakness Allergies: Coded Allergies: No Known Allergies (Unverified , 11/20/16) Objective Last 24 Hour Vital Signs Date Time Temp Pulse Resp B/P Pulse Ox O2 Delivery O2 Flow Rate FiO2 11/26/16 15:59 98.6 91 22 137/80 100 Room Air 11/26/16 12:00 97.6 84 20 121/74 100 Room Air 11/26/16 08:18 98.0 99 20 112/69 100 Room Air 11/26/16 04:00 97.9 74 18 105/59 99 Room Air 11/26/16 00:00 98.1 75 18 136/76 100 Room Air 11/25/16 20:12 98.6 75 20 139/87 100 Room Air Intake and Output 11/25/16 11/26/16 19:00 07:00 Intake Total 790 ml 625 ml Output Total 400 ml 870 ml Balance 390 ml -245 ml Intake Oral 240 ml 600 ml IV Total 550 ml 25 ml Output Urine Total 400 ml 870 ml # Voids 1 # Bowel Movements 1 General Appearance: no acute distress HEENT: normocephalic, atraumatic, PERRL, other - icteric Respiratory/Chest: chest wall non-tender, decreased breath sounds, accessory muscle use Cardiovascular: normal peripheral pulses, normal rate, regular rhythm, no JVD Abdomen: hypoactive bowel sounds, distended, guarding, tender, rebound tenderness, hepatomegaly Genitourinary: normal external genitalia Extremities: no cyanosis Skin: no rash, lesions 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, responsive, depressed affect Laboratory Tests 11/26/16 06:00: White Blood Count 11.6H, Red Blood Count 2.67L, Hemoglobin 8.4L, Hematocrit 25.4L, Mean Corpuscular Volume 95, Mean Corpuscular Hemoglobin 31.4H, Mean Corpuscular Hemoglobin Concent 33.0, Red Cell Distribution Width 15.2H, Platelet Count 256, Mean Platelet Volume 6.6, Neutrophils (%) (Auto) 75.5H, Lymphocytes (%) (Auto) 8.4L, Monocytes (%) (Auto) 6.1, Eosinophils (%) (Auto) 6.6H, Basophils (%) (Auto) 3.4H, Prothrombin Time 9.9, Prothromb Time International Ratio 1.0, Activated Partial Thromboplast Time 30, Sodium Level 139, Potassium Level 3.3L, Chloride Level 101, Carbon Dioxide Level 23, Anion Gap 15, Blood Urea Nitrogen 16, Creatinine 1.2, Estimat Glomerular Filtration Rate > 60, Glucose Level 89, Calcium Level 8.0L, Phosphorus Level 2.5, Magnesium Level 1.7, Total Bilirubin 2.9H, Direct Bilirubin 1.4H, Aspartate Amino Transf (AST/SGOT) 40, Alanine Aminotransferase (ALT/SGPT) 39, Alkaline Phosphatase 272H, Total Protein 5.4L, Albumin 2.4L, Globulin 3.0, Albumin/ Globulin Ratio 0.8L Current Medications Medications (Trade) Dose Ordered Sig/Courtney Route PRN Reason Start Time Stop Time Status Last Admin Dose Admin Acetaminophen 650 mg 650 mg Q4H PRN ORAL Mild Pain/Temp > 100.5 11/24/16 14:00 12/24/16 13:59 11/24/16 13:30 Al Hydroxide/Mg Hydroxide (Mylanta II) 30 ml Q6H PRN ORAL dyspepsia 11/20/16 16:45 12/20/16 16:44 Atorvastatin Calcium (Lipitor) 20 mg BEDTIME ORAL 11/20/16 21:00 12/20/16 20:59 11/25/16 22:34 Dextrose (Dextrose 50%) STAT PRN IV Hypoglycemia 11/20/16 16:45 12/20/16 16:44 Diphenhydramine HCl (Benadryl) 25 mg Q6H PRN ORAL Itching/Pruritis 11/20/16 16:45 12/20/16 16:44 Finasteride (Proscar) 5 mg DAILY ORAL 11/21/16 09:00 12/21/16 08:59 11/26/16 09:23 Lidocaine HCl (Xylocaine Jelly 2%) 1 applic EVERY 4 HOURS PRN TOPIC penile pain 11/23/16 13:00 12/23/16 12:59 11/25/16 09:06 Morphine Sulfate (Morphine Sulfate) 2 mg EVERY 4 HOURS PRN IVP severe Pain (Pain Scale 7-10) 11/20/16 16:45 11/27/16 16:44 11/21/16 03:34 Nitroglycerin (Ntg) 0.4 mg Q5M X 3 DOSES PRN SL Prn Chest Pain 11/20/16 16:45 12/20/16 16:44 Ondansetron HCl (Zofran) 4 mg Q6H PRN IVP Nausea & Vomiting 11/20/16 16:45 12/20/16 16:44 Pantoprazole (Protonix) 40 mg DAILY IVP 11/22/16 09:00 12/22/16 08:59 11/26/16 09:23 Piperacillin Sod/ Tazobactam Sod/ Sodium Chloride (Zosyn/Sodium Chloride) 110 ml @ 27.5 mls/hr EVERY 8 HOURS IVPB 11/26/16 14:00 12/03/16 13:59 11/26/16 14:29 Polyethylene Glycol (Miralax) 17 gm HSPRN PRN ORAL Constipation 11/20/16 16:45 12/20/16 16:44 Promethazine HCl/ Codeine (Phenergan with Codeine) 5 ml Q4H PRN ORAL For Cough 11/23/16 12:00 12/23/16 11:59 Tamsulosin HCl (Flomax) 0.4 mg BEDTIME ORAL 11/20/16 21:00 12/20/16 20:59 11/25/16 22:34 Temazepam (Restoril) 15 mg HSPRN PRN ORAL Insomnia 11/20/16 16:45 11/27/16 16:44 11/26/16 01:13 MILES KNUTSON Nov 26, 2016 17:13
[2016-11-26 20:04] VITALS: BP 124/76
[2016-11-26] MEDS: Tamsulosin 0.4mg cap ORAL SCH (21:21)
[2016-11-26] MEDS ORDERED: Piperacillin/Tazobactam 3.375 GM in NS 110 ML IVPB SCH (22:00)
[2016-11-27] VITALS: BP 144/81
[2016-11-27 04:00] VITALS: BP 112/60
[2016-11-27] MEDS: Piperacillin/Tazobactam 3.375 GM in NS 110 ML IVPB SCH ×3 (05:19→22:38)
[2016-11-27 06:28] LABS: BASOPHILS % (AUTO) 5.4 % (0.0-2.0); EOSINOPHILS % (AUTO) 6.4 % (0.0-3.0); LYMPHOCYTES % (AUTO) 10.3 % (20.0-45.0); MEAN CORPUSCULAR HEMOGLOBIN 31.7 PG (27.0-31.0); MEAN CORPUSCULAR HGB CONC 33.4 G/DL (32.0-36.0); MEAN CORPUSCULAR VOLUME 95 FL (80-99); MEAN PLATELET VOLUME 6.2 FL (6.5-10.1); MONOCYTES % (AUTO) 3.4 % (1.0-10.0); NEUTROPHILS % (AUTO) 74.5 % (45.0-75.0); PLATELET COUNT 265 K/UL (150-450); RED BLOOD COUNT 2.58 M/UL (4.70-6.10); RED CELL DISTRIBUTION WIDTH 15.8 % (11.6-14.8); WHITE BLOOD COUNT 11.5 K/UL (4.8-10.8)
[2016-11-27 07:23] LABS: ALBUMIN/GLOBULIN RATIO 0.8 (1.0-2.7); CALCIUM 8.1 mg/dL (8.6-10.2); CREATININE 1.3 mg/dL (0.7-1.2); GLOMERULAR FILTRATION RATE 55.2 mL/min (>60); POTASSIUM 3.7 mEQ/L (3.4-4.9); TOTAL PROTEIN 5.3 g/dL (6.6-8.7)
[2016-11-27 07:39] LABS: BILIRUBIN,DIRECT 1.4 mg/dL (0.1-0.3)
[2016-11-27 08:31] VITALS: BP 123/73
[2016-11-27] MEDS: Pantoprazole Inj IVP SCH (09:55)
--- NOTE | 2016-11-27 10:52 | GI Progress Note ---
Assessment/Plan Problems: (1) Biliary obstruction ICD Codes: K83.1 - Obstruction of bile duct SNOMED: 023365691 (2) Abdominal pain ICD Codes: R10.9 - Unspecified abdominal pain SNOMED: 55566755 Qualifiers: Qualified Codes: R10.84 - Generalized abdominal pain (3) Pancreatic cancer ICD Codes: C25.9 - Malignant neoplasm of pancreas, unspecified SNOMED: 107250716 Qualifiers: Qualified Codes: C25.9 - Malignant neoplasm of pancreas, unspecified (4) Malnutrition ICD Codes: E46 - Unspecified protein-calorie malnutrition SNOMED: 0571892 (5) Anemia ICD Codes: D64.9 - Anemia, unspecified SNOMED: 284795441 (6) Jaundice ICD Codes: R17 - Unspecified jaundice SNOMED: 31607956 (7) Hypoalbuminemia ICD Codes: E88.09 - Other disorders of plasma-protein metabolism, not elsewhere classified SNOMED: 686178930 Status: stable, unchanged Status Narrative Discussed with Dr. York. Assessment/Plan elevated CA19-9 monitor H&H, transfuse prn f/u pathology ppi abx fu labs Subjective Gastrointestinal/Abdominal: Reports: no symptoms Subjective BLE 2+ edema Objective Last 24 Hour Vital Signs Date Time Temp Pulse Resp B/P Pulse Ox O2 Delivery O2 Flow Rate FiO2 11/27/16 08:31 98.7 99 20 123/73 100 Room Air 11/27/16 04:00 97.4 84 18 112/60 100 Room Air 11/27/16 00:00 97.9 89 18 144/81 100 Room Air 11/26/16 20:04 98.1 83 20 124/76 99 Room Air 11/26/16 15:59 98.6 91 22 137/80 100 Room Air 11/26/16 12:00 97.6 84 20 121/74 100 Room Air Intake and Output 11/26/16 11/27/16 19:00 07:00 Intake Total 720 ml 887.5 ml Output Total 400 ml 1100 ml Balance 320 ml -212.5 ml Intake Oral 720 ml 860 ml IV Total 27.5 ml Output Urine Total 400 ml 1100 ml # Voids 1 # Bowel Movements 1 Laboratory Tests Test 11/27/16 05:00 White Blood Count 11.5 K/UL (4.8-10.8) H Red Blood Count 2.58 M/UL (4.70-6.10) L Hemoglobin 8.2 G/DL (14.2-18.0) L Hematocrit 24.5 % (42.0-52.0) L Mean Corpuscular Volume 95 FL (80-99) Mean Corpuscular Hemoglobin 31.7 PG (27.0-31.0) H Mean Corpuscular Hemoglobin Concent 33.4 G/DL (32.0-36.0) Red Cell Distribution Width 15.8 % (11.6-14.8) H Platelet Count 265 K/UL (150-450) Mean Platelet Volume 6.2 FL (6.5-10.1) L Neutrophils (%) (Auto) 74.5 % (45.0-75.0) Lymphocytes (%) (Auto) 10.3 % (20.0-45.0) L Monocytes (%) (Auto) 3.4 % (1.0-10.0) Eosinophils (%) (Auto) 6.4 % (0.0-3.0) H Basophils (%) (Auto) 5.4 % (0.0-2.0) H Sodium Level 142 mEQ/L (135-145) Potassium Level 3.7 mEQ/L (3.4-4.9) Chloride Level 104 mEQ/L (98-107) Carbon Dioxide Level 23 mEQ/L (20-30) Anion Gap 15 (5-15) Blood Urea Nitrogen 17 mg/dL (7-23) Creatinine 1.3 mg/dL (0.7-1.2) H Estimat Glomerular Filtration Rate 55.2 mL/min (>60) Glucose Level 96 mg/dL (74-106) Calcium Level 8.1 mg/dL (8.6-10.2) L Total Bilirubin 2.7 mg/dL (0.0-1.2) H Direct Bilirubin 1.4 mg/dL (0.1-0.3) H Aspartate Amino Transf (AST/SGOT) 35 U/L (5-40) Alanine Aminotransferase (ALT/SGPT) 34 U/L (3-41) Alkaline Phosphatase 239 U/L (40-129) H Total Protein 5.3 g/dL (6.6-8.7) L Albumin 2.4 g/dL (3.5-5.2) L Globulin 2.9 g/dL Albumin/Globulin Ratio 0.8 (1.0-2.7) L Height (Feet): 5 Height (Inches): 5.00 Weight (Pounds): 152 General Appearance: no apparent distress, alert Cardiovascular: normal rate Respiratory/Chest: no respiratory distress Abdominal Exam: normal bowel sounds, non tender, soft Oxana Michaels N.P. Nov 27, 2016 10:52
[2016-11-27 11:49] VITALS: BP 126/83
[2016-11-27 16:24] VITALS: BP 122/75
--- NOTE | 2016-11-27 17:48 | Infectious Diseases Prog Note ---
Assessment/Plan Assessment/Plan ASSESSMENT: 66 y/o male with: // Probable cholangitis / obstructive jaundice - SP biliary stent OSH with pneumobilia // Urinary retention, hematuria SP holcomb r/o UTI - UCx(-), urology following // Leukocytosis - recurrent, mild, stable, afebrile ( pancreatitis, CA contributing ) // Probable metastatic pancreatic CA / peritoneal carcinomatosis - SP EUS, FNA x3 - path nondiagnostic // Acute pancreatitis // Elevated LFTs // L>R pleural effusions // VRE colonized // NKDA // Full Code PLAN: - ok to DC on PO cipro + flagyl x7 days. Will continue zosyn d# 7 / 14 while still inpt - monitor CBC, temperatures - monitor CMP - DC planning d/w Dr. Dietrich Subjective Allergies: Coded Allergies: No Known Allergies (Unverified , 11/20/16) Subjective remains afebrile. no new complaint path nondiagnostic for possible DC Objective Vital Signs Last 24 Hour Vital Signs Date Time Temp Pulse Resp B/P Pulse Ox O2 Delivery O2 Flow Rate FiO2 11/27/16 16:24 98.0 88 20 122/75 100 Room Air 11/27/16 11:49 98.2 84 20 126/83 98 Room Air 11/27/16 08:31 98.7 99 20 123/73 100 Room Air 11/27/16 04:00 97.4 84 18 112/60 100 Room Air 11/27/16 00:00 97.9 89 18 144/81 100 Room Air 11/26/16 20:04 98.1 83 20 124/76 99 Room Air Height (Feet): 5 Height (Inches): 5.00 Weight (Pounds): 152 General Appearance: no acute distress Respiratory/Chest: no respiratory distress Cardiovascular: normal rate, regular rhythm Abdomen: normal bowel sounds, soft, non tender, non distended Laboratory Tests Test 11/27/16 05:00 White Blood Count 11.5 K/UL (4.8-10.8) H Red Blood Count 2.58 M/UL (4.70-6.10) L Hemoglobin 8.2 G/DL (14.2-18.0) L Hematocrit 24.5 % (42.0-52.0) L Mean Corpuscular Volume 95 FL (80-99) Mean Corpuscular Hemoglobin 31.7 PG (27.0-31.0) H Mean Corpuscular Hemoglobin Concent 33.4 G/DL (32.0-36.0) Red Cell Distribution Width 15.8 % (11.6-14.8) H Platelet Count 265 K/UL (150-450) Mean Platelet Volume 6.2 FL (6.5-10.1) L Neutrophils (%) (Auto) 74.5 % (45.0-75.0) Lymphocytes (%) (Auto) 10.3 % (20.0-45.0) L Monocytes (%) (Auto) 3.4 % (1.0-10.0) Eosinophils (%) (Auto) 6.4 % (0.0-3.0) H Basophils (%) (Auto) 5.4 % (0.0-2.0) H Sodium Level 142 mEQ/L (135-145) Potassium Level 3.7 mEQ/L (3.4-4.9) Chloride Level 104 mEQ/L (98-107) Carbon Dioxide Level 23 mEQ/L (20-30) Anion Gap 15 (5-15) Blood Urea Nitrogen 17 mg/dL (7-23) Creatinine 1.3 mg/dL (0.7-1.2) H Estimat Glomerular Filtration Rate 55.2 mL/min (>60) Glucose Level 96 mg/dL (74-106) Calcium Level 8.1 mg/dL (8.6-10.2) L Total Bilirubin 2.7 mg/dL (0.0-1.2) H Direct Bilirubin 1.4 mg/dL (0.1-0.3) H Aspartate Amino Transf (AST/SGOT) 35 U/L (5-40) Alanine Aminotransferase (ALT/SGPT) 34 U/L (3-41) Alkaline Phosphatase 239 U/L (40-129) H Total Protein 5.3 g/dL (6.6-8.7) L Albumin 2.4 g/dL (3.5-5.2) L Globulin 2.9 g/dL Albumin/Globulin Ratio 0.8 (1.0-2.7) L Current Medications Medications (Trade) Dose Ordered Sig/Courtney Route PRN Reason Start Time Stop Time Status Last Admin Dose Admin Acetaminophen 650 mg 650 mg Q4H PRN ORAL Mild Pain/Temp > 100.5 11/24/16 14:00 12/24/16 13:59 11/24/16 13:30 Al Hydroxide/Mg Hydroxide (Mylanta II) 30 ml Q6H PRN ORAL dyspepsia 11/20/16 16:45 12/20/16 16:44 Atorvastatin Calcium (Lipitor) 20 mg BEDTIME ORAL 11/20/16 21:00 12/20/16 20:59 11/26/16 21:21 Dextrose (Dextrose 50%) STAT PRN IV Hypoglycemia 11/20/16 16:45 12/20/16 16:44 Diphenhydramine HCl (Benadryl) 25 mg Q6H PRN ORAL Itching/Pruritis 11/20/16 16:45 12/20/16 16:44 Finasteride (Proscar) 5 mg DAILY ORAL 11/21/16 09:00 12/21/16 08:59 11/27/16 09:54 Lidocaine HCl (Xylocaine Jelly 2%) 1 applic EVERY 4 HOURS PRN TOPIC penile pain 11/23/16 13:00 12/23/16 12:59 11/25/16 09:06 Nitroglycerin (Ntg) 0.4 mg Q5M X 3 DOSES PRN SL Prn Chest Pain 11/20/16 16:45 12/20/16 16:44 Ondansetron HCl (Zofran) 4 mg Q6H PRN IVP Nausea & Vomiting 11/20/16 16:45 12/20/16 16:44 Pantoprazole (Protonix) 40 mg DAILY IVP 11/22/16 09:00 12/22/16 08:59 11/27/16 09:55 Piperacillin Sod/ Tazobactam Sod/ Sodium Chloride (Zosyn/Sodium Chloride) 110 ml @ 27.5 mls/hr EVERY 8 HOURS IVPB 11/26/16 14:00 12/03/16 13:59 11/27/16 13:48 Polyethylene Glycol (Miralax) 17 gm HSPRN PRN ORAL Constipation 11/20/16 16:45 12/20/16 16:44 Promethazine HCl/ Codeine (Phenergan with Codeine) 5 ml Q4H PRN ORAL For Cough 11/23/16 12:00 12/23/16 11:59 Tamsulosin HCl (Flomax) 0.4 mg BEDTIME ORAL 11/20/16 21:00 12/20/16 20:59 11/26/16 21:21 MARÍA SARGENT Nov 27, 2016 17:48
--- NOTE | 2016-11-27 17:59 | Pulmonology Progress Note ---
Assessment/Plan Problems: (1) Sepsis (2) Jaundice (3) Hypoalbuminemia (4) Pancreatic cancer (5) Abdominal pain (6) Biliary obstruction (7) Dyspnea (8) Anemia Assessment/Plan Urology evaluation continue abc cxr showing LLL atelectasis/ infiltrate continue antibiotics check cultures awaiting biopsy results sputum c/s respiratory treatment Subjective ROS Limited/Unobtainable: No Constitutional: Reports: anorexia, fatigue Skin: Reports: other - yellowish skin discoloration, rash Allergies: Coded Allergies: No Known Allergies (Unverified , 11/20/16) Objective Last 24 Hour Vital Signs Date Time Temp Pulse Resp B/P Pulse Ox O2 Delivery O2 Flow Rate FiO2 11/27/16 16:24 98.0 88 20 122/75 100 Room Air 11/27/16 11:49 98.2 84 20 126/83 98 Room Air 11/27/16 08:31 98.7 99 20 123/73 100 Room Air 11/27/16 04:00 97.4 84 18 112/60 100 Room Air 11/27/16 00:00 97.9 89 18 144/81 100 Room Air 11/26/16 20:04 98.1 83 20 124/76 99 Room Air Intake and Output 11/26/16 11/27/16 19:00 07:00 Intake Total 720 ml 887.5 ml Output Total 400 ml 1100 ml Balance 320 ml -212.5 ml Intake Oral 720 ml 860 ml IV Total 27.5 ml Output Urine Total 400 ml 1100 ml # Voids 1 # Bowel Movements 1 General Appearance: no acute distress, other - icteric appearing HEENT: normocephalic, atraumatic, PERRL Respiratory/Chest: chest wall non-tender, decreased breath sounds, accessory muscle use Cardiovascular: normal peripheral pulses, normal rate, regular rhythm, no JVD Abdomen: hyperactive bowel sounds, distended, guarding, tender, rebound tenderness Genitourinary: normal external genitalia Extremities: no cyanosis Skin: rash, lesions Neurologic/Psychiatric: property adjuster II-XII grossly normal, no motor/sensory deficits Laboratory Tests 11/27/16 05:00: White Blood Count 11.5H, Red Blood Count 2.58L, Hemoglobin 8.2L, Hematocrit 24.5L, Mean Corpuscular Volume 95, Mean Corpuscular Hemoglobin 31.7H, Mean Corpuscular Hemoglobin Concent 33.4, Red Cell Distribution Width 15.8H, Platelet Count 265, Mean Platelet Volume 6.2L, Neutrophils (%) (Auto) 74.5, Lymphocytes (%) (Auto) 10.3L, Monocytes (%) (Auto) 3.4, Eosinophils (%) (Auto) 6.4H, Basophils (%) (Auto) 5.4H, Sodium Level 142, Potassium Level 3.7, Chloride Level 104, Carbon Dioxide Level 23, Anion Gap 15, Blood Urea Nitrogen 17, Creatinine 1.3H, Estimat Glomerular Filtration Rate 55.2, Glucose Level 96, Calcium Level 8.1L, Total Bilirubin 2.7H, Direct Bilirubin 1.4H, Aspartate Amino Transf (AST/SGOT) 35, Alanine Aminotransferase (ALT/SGPT) 34, Alkaline Phosphatase 239H, Total Protein 5.3L, Albumin 2.4L, Globulin 2.9, Albumin/ Globulin Ratio 0.8L Current Medications Medications (Trade) Dose Ordered Sig/Courtney Route PRN Reason Start Time Stop Time Status Last Admin Dose Admin Acetaminophen 650 mg 650 mg Q4H PRN ORAL Mild Pain/Temp > 100.5 11/24/16 14:00 12/24/16 13:59 11/24/16 13:30 Al Hydroxide/Mg Hydroxide (Mylanta II) 30 ml Q6H PRN ORAL dyspepsia 11/20/16 16:45 12/20/16 16:44 Atorvastatin Calcium (Lipitor) 20 mg BEDTIME ORAL 11/20/16 21:00 12/20/16 20:59 11/26/16 21:21 Dextrose (Dextrose 50%) STAT PRN IV Hypoglycemia 11/20/16 16:45 12/20/16 16:44 Diphenhydramine HCl (Benadryl) 25 mg Q6H PRN ORAL Itching/Pruritis 11/20/16 16:45 12/20/16 16:44 Finasteride (Proscar) 5 mg DAILY ORAL 11/21/16 09:00 12/21/16 08:59 11/27/16 09:54 Lidocaine HCl (Xylocaine Jelly 2%) 1 applic EVERY 4 HOURS PRN TOPIC penile pain 11/23/16 13:00 12/23/16 12:59 11/25/16 09:06 Nitroglycerin (Ntg) 0.4 mg Q5M X 3 DOSES PRN SL Prn Chest Pain 11/20/16 16:45 12/20/16 16:44 Ondansetron HCl (Zofran) 4 mg Q6H PRN IVP Nausea & Vomiting 11/20/16 16:45 12/20/16 16:44 Pantoprazole (Protonix) 40 mg DAILY IVP 11/22/16 09:00 12/22/16 08:59 11/27/16 09:55 Piperacillin Sod/ Tazobactam Sod/ Sodium Chloride (Zosyn/Sodium Chloride) 110 ml @ 27.5 mls/hr EVERY 8 HOURS IVPB 11/26/16 14:00 12/03/16 13:59 11/27/16 13:48 Polyethylene Glycol (Miralax) 17 gm HSPRN PRN ORAL Constipation 11/20/16 16:45 12/20/16 16:44 Promethazine HCl/ Codeine (Phenergan with Codeine) 5 ml Q4H PRN ORAL For Cough 11/23/16 12:00 12/23/16 11:59 Tamsulosin HCl (Flomax) 0.4 mg BEDTIME ORAL 11/20/16 21:00 12/20/16 20:59 11/26/16 21:21 MILES KNUTSON Nov 27, 2016 17:59
[2016-11-27 20:00] VITALS: BP 137/92
[2016-11-27] MEDS: Tamsulosin 0.4mg cap ORAL SCH (21:00)
[2016-11-27] MEDS ORDERED: D5 1/2NS 1000ml IV ONE ×2 (22:44)
--- NOTE | 2016-11-28 18:45 | Discharge Summary ---
Discharge Summary Hospital Course Date of Admission Nov 20, 2016 at 16:42 Date of Discharge Nov 27, 2016 at 22:45 Admitting Diagnosis abdominal pain HPI Shubham Rutledge is a 66 year old male who was admitted on Nov 20, 2016 at 16:42 for Abdominal Pain Hospital Course [id number] Discharge Discharge Disposition Patient was discharged to SNF/Subacute Facility(03) Discharge Diagnoses: Carolina Cardona NP Nov 28, 2016 18:45
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
--- NOTE | 2016-11-30 17:27 | Diagnostic Imaging Report ---
APPROVED REPORT CPT Code: 66619 Present Symptoms Comments: Swelling BILATERAL: Imaging reveals a patent deep venous system bilaterally. There is no evidence of thrombus within the femoral, popliteal or tibial segments. The greater saphenous veins are also within normal limits. Doppler indicates normal spontaneous flow within these segments.
--- NOTE | 2017-02-24 15:15 | Endoscopy Procedure Note ---
Endoscopy Procedure Note Indication for Procedure: pancreatic mass Procedures Performed: other - EUS Operative Findings/Diagnosis: same Specimen: yes Pt Tolerated Procedure Well: Yes Estimated Blood Loss: none Anesthesiologist: see chart Anesthesia: MAC Implant(s) used?: No 50 yrs or older w/o bx or poly: Not Applicable 10yrs. F/U not recommended: Not Applicable ALIREZA HERRERA Feb 24, 2017 15:15
== END 2016-11-27 22:45 | DRG 871 ==
LOC: EDBD 14:26 → EMR 15:50 → 3E 16:42 → EDBEDREQ 17:15 → 4W 11-23 13:33
PROC: 0F9G3ZX Drainage of Pancreas, Percutaneous Approach, Diagnostic (ICD-10-PCS; principal; 2016-11-22 09:50)
DX: A41.9 Sepsis, unspecified organism (principal); K83.1 Obstruction of bile duct; R18.0 Malignant ascites; K85.90 Acute pancreatitis without necrosis or infection, unspecified; J90 Pleural effusion, not elsewhere classified; C25.0 Malignant neoplasm of head of pancreas; E46 Unspecified protein-calorie malnutrition; K83.0 Cholangitis; J98.11 Atelectasis; E88.09 Other disorders of plasma-protein metabolism, not elsewhere classified; Z68.25 Body mass index [BMI] 25.0-25.9, adult; R59.1 Generalized enlarged lymph nodes; D72.829 Elevated white blood cell count, unspecified; D64.9 Anemia, unspecified; N32.89 Other specified disorders of bladder; R31.9 Hematuria, unspecified
CPT/HCPCS: 36415; 71010; 71275; 72195; 74183; 80053; 80076; 81001; 81003; 82150; 82248; 82378; 82607; 82746; 83540; 83550; 83615; 83690; 83735; 84100; 85007; 85025; 85044; 85060; 85610; 85651; 85730; 86301; 86850; 86900; 86901; 87081; 87086; 93005; 93306; 93970; 94003; 94150; A9585; J2405